=== PATIENT | female | born 1930 | race Caucasian/White ===

== ENCOUNTER 2017-03-17 20:18 | Inpatient (IN) | payer MEDICARE, MEDICAID ==
[2017-03-17] MEDS ORDERED: Sodium Chloride 0.9% 10 ML Syringe FLUSH PRN (20:47)
[2017-03-17] MEDS ORDERED: Furosemide 40 MG/4 ML VIAL IV ONE (20:49)
[2017-03-17 22:50] LABS: CHLORIDE,CL 105 mmol/L (98-107); SODIUM,NA 142 mmol/L (136-145)
[2017-03-18] MEDS ORDERED: Enoxaparin 30 MG/0.3 ML Syringe SUBCUT SCH (01:15)
[2017-03-18] MEDS: Enoxaparin 30 MG/0.3 ML Syringe SUBCUT SCH (06:08)
[2017-03-18] MEDS: Tiotropium Inhaler 18 MCG Inhalation Powder Cap Kit of 5 INH SCH ×2 (07:49→10:16)
[2017-03-18] MEDS: Calcium Carbonate/Vitamin D3 1250 MG-200 Unit Tab PO SCH (07:49)
[2017-03-18] MEDS: Cyanocobalamin (Vitamin B12) 1,000 MCG Tab PO SCH (07:50)
[2017-03-18] MEDS: Potassium Chloride 10 MEQ Tab.ER PO SCH ×2 (07:50→20:56)
[2017-03-18] MEDS: Folic Acid 1 MG Tab PO SCH (07:50)
[2017-03-18] MEDS: Losartan 25 MG Tab PO SCH (07:50)
[2017-03-18] MEDS: Multivitamins with Iron/Calcium/Folic Acid/Minerals Tab PO SCH (07:50)
[2017-03-18] MEDS: Aspirin 325 MG Tab.EC PO SCH (07:50)
[2017-03-18] MEDS: atorvaSTATin 10 MG Tab PO SCH (07:51)
[2017-03-18] MEDS: Metoprolol Succinate 50 MG Tab.ER PO SCH (07:53)
[2017-03-18] MEDS ORDERED: Bumetanide 1 MG Tab PO SCH ×2 (08:00→12:00)
[2017-03-18] MEDS: Furosemide 40 MG/4 ML VIAL IV SCH (10:41)
--- NOTE | 2017-03-18 14:40 | HP ---
REASON FOR ADMISSION: Fluid retention and dyspnea. HISTORY: An 86-year-old, white female, brought in by family last evening. She was assessed in the emergency room. She was noted to have increasing swelling in her legs since last , worse by evening. Also some shortness of breath and some significant orthopnea. She denied any chest pain, any nausea, vomiting, and no abdominal pain. On assessment in the emergency room last night, she was found to be in congestive heart failure and was given some IV Lasix with good urinary output results. It was felt the best that she be in the hospital for monitoring and treatment of her condition. PAST MEDICAL HISTORY: 1. She was hospitalized in 02/2016 with similar symptoms, was admitted to the [facility] on transfer from here. She was in acute respiratory failure at that time. 2. Congestive heart failure. 3. Pulmonary hypertension. 4. Sleep apnea. 5. Depression. 6. Atrial fibrillation. 7. COPD. MEDICATIONS: Reviewed in the electronic health record. ALLERGIES: None known. SOCIAL HISTORY: She lives alone at [facility]. She is a . Home health visits her every 2 weeks for medications set up. REVIEW OF SYSTEMS: She denies any cold symptoms. No fever or chills. No cough. No urinary symptoms. No change in bowel habits. OBJECTIVE: GENERAL: She is alert. VITAL SIGNS: Weight on admission was 181 pounds and 12 ounces. Weight this morning is 180 pounds. Blood pressure is 153/63, pulse is 64, O2 sats 96%, respirations are 20. HEENT: TMs are negative. Throat clear. NECK: No adenopathy. HEART: Regular rate and rhythm. LUNGS: Clear to auscultation. ABDOMEN: Soft, moderately obese. No masses palpable. No hepatosplenomegaly noted. Normoactive bowel sounds. EXTREMITIES: Warm and dry. There is no edema this morning. Full range of motion. NEUROLOGICAL: Motor and sensory functions are grossly intact. LABORATORY DATA: White count 8.6, hemoglobin 11.5. INR 1.1. Electrolytes are normal. Creatinine is 1.2. Troponin last night was 0.190, this morning it is 0.266, proBNP 6161. EKG showed atrial fibrillation with a slow response. No other acute changes noted. Chest x-ray showed a large left pleural effusion and a small right pleural effusion. ASSESSMENT: 1. Congestive heart failure - acute exacerbation - etiology undetermined. 2. Elevated troponin. Apparently she had a discussion in the ER last night about going to [place]. She elected to stay here. Unclear if she understands ramifications as she is quite hard of hearing. We will continue to monitor. 3. Atrial fibrillation. 4. Pulmonary hypertension. 5. Chronic obstructive coronary artery disease. PLAN: The patient will be admitted on acute care status. Placed on director of cardiac cath lab. Monitor I and O and daily weights. Repeat EKG this morning. Repeat troponin this afternoon. Give her IV Lasix for diuresis and hold her Bumex for now. Continue her other home medications. Repeat laboratory tomorrow morning and discuss with her family later today regarding implications of her elevated troponin. FM: 03/18/2017 10:12:46 MODL: 03/18/2017 14:31:34 /[id number]
[2017-03-19] MEDS: Cyanocobalamin (Vitamin B12) 1,000 MCG Tab PO SCH (07:47)
[2017-03-19] MEDS: Aspirin 325 MG Tab.EC PO SCH (07:47)
[2017-03-19] MEDS: Calcium Carbonate/Vitamin D3 1250 MG-200 Unit Tab PO SCH (07:47)
[2017-03-19] MEDS: Multivitamins with Iron/Calcium/Folic Acid/Minerals Tab PO SCH (07:47)
[2017-03-19] MEDS: Metoprolol Succinate 50 MG Tab.ER PO SCH (07:47)
[2017-03-19] MEDS: atorvaSTATin 10 MG Tab PO SCH (07:47)
[2017-03-19] MEDS: Losartan 25 MG Tab PO SCH (07:47)
[2017-03-19] MEDS: Folic Acid 1 MG Tab PO SCH (07:47)
[2017-03-19] MEDS: Potassium Chloride 10 MEQ Tab.ER PO SCH (07:47)
[2017-03-19] MEDS: Furosemide 40 MG/4 ML VIAL IV SCH (07:48)
[2017-03-19] MEDS: Enoxaparin 30 MG/0.3 ML Syringe SUBCUT SCH (07:49)
[2017-03-19] MEDS: Tiotropium Inhaler 18 MCG Inhalation Powder Cap Kit of 5 INH SCH (07:49)
[2017-03-19 10:44] VITALS: BP 125/65
--- NOTE | 2017-03-20 08:06 | DISCH ---
FINAL DIAGNOSES: 1. Congestive heart failure-acute exacerbation-etiology undetermined. 2. Elevated troponin possibly related to congestive heart failure, possibly non-ST elevated myocardial infarction. 3. Chronic atrial fibrillation. 4. Pulmonary hypertension. 5. Chronic obstructive pulmonary disease. HISTORY AND HOSPITAL COURSE: 86-year-old white female, brought in by family with increasing symptoms of swelling in her legs and shortness of breath especially orthopnea. She denied any chest pain. She was given IV Lasix in the emergency room with good diuresis. Continued IV Lasix on the hospital floor. 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 Her troponin levels were monitored and they did go up a little bit and then came back down the same day. She denies any chest pain throughout her hospital stay, was up and ambulatory. Feeling quite well. His chest x-ray did show a large left pleural effusion and a small right pleural effusion. She was symptomatically improved by the time of discharge. The patient and her son were made aware of the elevated troponin and she elected to stay here rather being transferred to [place] for further evaluation. LABORATORY DATA: White count 8.6, hemoglobin 11.5, electrolytes remained stable. Discharge potassium of 3.5, creatinine remained stable at 1.2. LFTs were normal. Initial troponin was 0.190, it went up as high as 0.266, and then today it is at 0.093. Her proBNP was elevated at 6161 and on discharge day is 3606. CONDITION ON DISCHARGE: Improved. DISCHARGE MEDICATIONS: 1. Aspirin 325 mg daily. 2. Lipitor 20 mg daily. 3. Wellbutrin 75 mg b.i.d. 4. Calcium carbonate daily. 5. Vitamin B12 1000 mcg daily. 6. Folic acid 1 mg daily. 7. Bumex 1 mg in the morning and 0.5 mg at 2 p.m. 8. Losartan 25 mg daily. 9. Metoprolol 200 mg daily. 10.Multivitamin daily. 11.Potassium 10 mEq daily. 12.Spiriva 1 inhalation daily. 13.Sublingual nitroglycerin p.r.n. 14.Symbicort 2 puffs b.i.d. 15.Incruse Ellipta 1 puff daily. FOLLOWUP: She identifies Dr. Shirley Loera as a primary provider and she should follow up with her in approximately 1 week to monitor her condition. Home Health will come on and set up the medications. They will be informed of medication changes. Also discussed condition with her son and he is aware of her new medication changes also. Duration of discharge day evaluation greater than 30 minutes. FM: 03/19/2017 11:24:31 MODL: 03/20/2017 03:14:08 /[id number]
--- NOTE | 2017-03-21 06:48 | ER ---
Date of Service: 03/17/2017 SUBJECTIVE: Doretha presents to the emergency room with her family. They noticed that she has been experiencing increased edema in her lower extremities. She also was complaining of some orthopnea and increased shortness of breath with activity. She states that she was not experiencing any chest pain or abdominal pain. The patient does have a history of severe congestive heart failure and was transferred to [facility] in [place] following an episode of flash pulmonary edema and acute respiratory failure requiring BiPAP in last fall. She since has recovered from that episode. PAST MEDICAL HISTORY: 1. Congestive heart failure. 2. Pulmonary hypertension. 3. Sleep apnea. 4. Depression. 5. Atrial fibrillation. 6. COPD. MEDICATIONS: Please see MAR. ALLERGIES: NKDA. REVIEW OF SYSTEMS: Denies any fever or chills. No cough. Does again complain of some increased respiratory distress, but no chest pain. No abdominal pain. No nausea, vomiting or diarrhea. PHYSICAL EXAMINATION: General: This is an 86-year-old female patient, who is in no acute distress. Vital Signs: Blood pressure is 145/74, heart rate is 68, temperature is 36.3, respiratory rate 16, O2 saturations 97%. Skin: Warm, pink, and dry. HEENT: Head is normocephalic, atraumatic. Mouth, oral mucosa is moist. Lungs: Diminished with some crackles in the bases. Heart: Regular rate and rhythm. Abdomen: Soft, nontender. There are no hepatosplenomegaly or masses noted. Extremities: Without edema. Neurologic: She is alert and oriented, answers all questions appropriately. Her speech is fluent. Her gait is within normal limits. DIAGNOSTIC DATA: A 12-lead EKG was obtained showing atrial fibrillation with no significant change or acute pathology. LABORATORY DATA: WBC 8.6, hemoglobin is 11.5, platelets are 229. PT is 12.1, INR is 1.0. Chemistry: Sodium is 142, potassium is 3.4, chloride is 105, bicarb is 28, BUN is 29, creatinine is 1.2, GFR is 43, glucose is 81, calcium is 8.8, corrected calcium is 9.36, total bilirubin is 0.4, AST is 20, ALT 27, alkaline phosphatase is 104, troponin was 0.190, proBNP was 6161, total protein is 6.9. EMERGENCY ROOM COURSE: IV access was established. She was given 40 mg of Lasix IV. She did report feeling much better and stated she was not experiencing any increased shortness of breath. ASSESSMENT: Congestive heart failure exacerbation. PLAN: I did speak with Dr. Maxwell Muhammad regarding admission for this patient. Please refer to his H and P regarding plan of care. She will be admitted to Med/Surg again acutely. All questions were answered. MWK: 03/21/2017 06:13:38 MODL: 03/21/2017 06:42:06 /[id number]
== END 2017-03-19 12:50 | disposition home health service (06) | DRG 282 ==
LOC: VM.ED 20:18 → VM.MS 23:15
PROVIDERS: ADMIT Family Medicine; ATTEND Family Medicine
DX: I50.9 Heart failure, unspecified (principal); R55 Syncope and collapse; R00.1 Bradycardia, unspecified; I21.4 Non-ST elevation (NSTEMI) myocardial infarction; Z66 Do not resuscitate; I27.2 Other secondary pulmonary hypertension; I48.91 Unspecified atrial fibrillation; R06.02 Shortness of breath; J44.9 Chronic obstructive pulmonary disease, unspecified; F32.9 Major depressive disorder, single episode, unspecified; Z79.82 Long term (current) use of aspirin; Z79.899 Other long term (current) drug therapy; I48.2 Chronic atrial fibrillation; G47.30 Sleep apnea, unspecified; R79.1 Abnormal coagulation profile
CPT/HCPCS: 36415; 71020; 80053; 82550; 82553; 83880; 84484; 85025; 85610; 93005; 96374; 99284; 99285; J1940; 80048; A9270-GY; J1650; J7050

== ENCOUNTER 2017-12-15 16:09 | Observation (INO) | payer MEDICARE, MEDICAID ==
--- NOTE | 2017-12-15 16:47 | EDM.PDOC ---
ED HPI GENERAL MEDICAL PROBLEM - General Chief Complaint: General Stated Complaint: fall, shoulder, knee pain Time Seen by Provider: 12/15/17 16:25 Source of Information: Reports: Patient, EMS History Limitations: Reports: No Limitations - History of Present Illness INITIAL COMMENTS - FREE TEXT/NARRATIVE: Patient is brought into the emergency department with complaints of right shoulder and left knee pain. Patient states she fell a couple times at home over the course of the last 24 hours. She does not remember hitting her head or losing consciousness. She denies feeling dizzy, lightheaded, or blurred vision. She misplaced her footing and fell. Patient is a poor historian at times is difficult to get an answer out of. EMS brought the patient in and gave her 1 mg Dilaudid prior to arrival. Patient has minimal amount of pain now that Dilaudid is on board. She still has some tenderness on palpation of the right shoulder. Onset: Sudden Quality: Reports: Throbbing Improves with: Reports: Immobilization Worsens with: Reports: Movement Context: Reports: Activity Treatments RETORT KILN BURNER: Reports: IV/IO, Other (see below) Other Treatments RETORT KILN BURNER: Dilaudid 1 mg - Related Data Allergies Allergy/AdvReac Type Severity Reaction Status Date / Time No Known Allergies Allergy Verified 12/15/17 16:28 Home Meds: Home Meds Aspirin [Halfprin] 325 mg PO DAILY 01/06/14 [History] Cyanocobalamin (Vitamin B-12) [Vitamin B-12] 1,000 mcg PO DAILY 01/06/14 [ History] Folic Acid 1 mg PO DAILY 01/06/14 [History] Losartan [Cozaar] 25 mg PO DAILY 01/06/14 [History] Multivitamin [Multi-Vitamin Daily] 1 each PO DAILY 01/06/14 [History] atorvaSTATin [Lipitor] 20 mg PO DAILY 01/06/14 [History] Tiotropium [Spiriva Handihaler] 18 mcg INH DAILY 08/11/14 [History] Potassium Chloride 10 meq PO BID #60 08/13/14 [Rx] Metoprolol Succinate [Toprol XL] 200 mg PO DAILY 06/13/15 [History] Bumetanide [Bumex] 1 mg PO DAILY 03/17/17 [History] buPROPion [Wellbutrin] 75 mg PO BID 03/17/17 [History] Budesonide/Formoterol [Symbicort 160-4.5 MCG] 2 puff INH BID 03/18/17 [History] Calcium Carbonate/Vitamin D3 [Cvs Calcium 500 + Vit D Tablet] 2 tab PO DAILY 09/29 [History] Cholecalciferol (Vitamin D3) [Vitamin D3] 1,000 unit PO DAILY 03/18/17 [History] Nitroglycerin [Nitrostat] 1 tab SUBAR ASDIRECTED PRN 03/18/17 [History] Umeclidinium [place] [Incruse Ellipta*] 1 puff INH DAILY 03/18/17 [History] Bumetanide [Bumex] 0.5 mg PO DAILY #30 tablet 03/19/17 [Rx] Past Medical History HEENT History: Reports: Hard of Hearing Cardiovascular History: Reports: Afib, Blood Clots/VTE/DVT, Heart Failure, High Cholesterol, Hypertension, Pulmonary Hypertension Other Cardiovascular History: mild aortic and mitral regurgitation Respiratory History: Reports: Sleep Apnea Gastrointestinal History: Reports: GERD Musculoskeletal History: Reports: Osteoarthritis Psychiatric History: Reports: Anxiety, Depression, OCD - Past Surgical History HEENT Surgical History: Reports: None Social & Family History - Family History Family Medical History: Noncontributory - Caffeine Use Caffeine Use: Reports: Coffee ED ROS GENERAL - Review of Systems Review Of Systems: See Below Constitutional: Reports: No Symptoms HEENT: Reports: No Symptoms Respiratory: Reports: No Symptoms Cardiovascular: Reports: No Symptoms Endocrine: Reports: No Symptoms GI/Abdominal: Reports: No Symptoms : Reports: No Symptoms Musculoskeletal: Reports: No Symptoms Skin: Reports: No Symptoms Neurological: Reports: No Symptoms Psychiatric: Reports: No Symptoms Hematologic/Lymphatic: Reports: No Symptoms ED EXAM, GENERAL - Physical Exam Exam: See Below Exam Limited By: No Limitations General Appearance: Alert, WD/WN, No Apparent Distress Nose: Normal Inspection Head: Atraumatic, Normocephalic Neck: Normal Inspection, Supple, Non-Tender, Full Range of Motion Respiratory/Chest: No Respiratory Distress, Lungs Clear, No Accessory Muscle Use Cardiovascular: Normal Peripheral Pulses, Regular Rate, Rhythm GI/Abdominal: Normal Bowel Sounds, Soft, Non-Tender, No Distention Back Exam: Normal Inspection, Full Range of Motion Extremities: Normal Inspection, Leg Pain, Limited Range of Motion (left ankle and foot pain with moderate swelling. Decrease ROM, tenderness, swelling, and ecchymosis noted) Neurological: Alert, Oriented Psychiatric: Normal Affect, Normal Mood Skin Exam: Warm, Dry, Intact, Normal Color, No Rash Course - Vital Signs Last Recorded V/S: Last Vital Signs Temp 37.1 C 12/15/17 16:23 Pulse 70 12/15/17 18:38 Resp 16 12/15/17 18:38 BP 157/59 H 12/15/17 18:38 Pulse Ox 96 12/15/17 18:38 - Orders/Labs/Meds Orders: Active Orders 24 hr Category Date Time Status Admission Status [Patient Status] [ADT] Routine ADT 12/15/17 20:02 Ordered EKG Documentation Completion [RC] STAT Care 12/15/17 16:42 Active Foot 2V Lt [CR] Stat Exams 12/15/17 18:08 Taken Knee 1V or 2V Lt [CR] Stat Exams 12/15/17 16:42 Taken Shoulder Comp Rt [CR] Stat Exams 12/15/17 16:43 Taken Labs: Laboratory Tests 12/15/17 12/15/17 Range/Units 17:17 17:17 WBC 9.0 (4.0-10.0) x10^3/uL RBC 4.47 (4.00-5.50) x10^6/uL Hgb 11.7 L (12.0-16.0) g/dL Hct 36.9 (33.0-47.0) % MCV 82.6 (78.0-93.0) fL MCH 26.2 (26.0-32.0) pg MCHC 31.7 L (32.0-36.0) g/dL RDW Coeff of Jayy 15.2 H (10.0-15.0) % Plt Count 242 (130-400) x10^3/uL Neut % (Auto) 79.6 (50.0-80.0) % Lymph % (Auto) 7.5 L (25.0-50.0) % [place] % (Auto) 12.0 H (2.0-11.0) % Eos % (Auto) 0.6 (0.0-4.0) % Baso % (Auto) 0.3 (0.2-1.2) % Sodium 140 (136-145) mmol/L Potassium 4.1 (3.5-5.1) mmol/L Chloride 104 (98-107) mmol/L Carbon Dioxide 26 (21-32) mmol/L Anion Gap 14.1 (10-20) mmol/L BUN 12 (7-18) mg/dL Creatinine 1.0 (0.55-1.02) mg/dL Est Cr Clr Drug Dosing 28.47 mL/min Estimated GFR (MDRD) 52 Glucose 89 (74-106) mg/dL Calcium 9.1 (8.5-10.1) mg/dL Corrected Calcium 9.50 (8.5-10.1) mg/dL Total Bilirubin 1.1 H (0.2-1.0) mg/dL AST 23 (15-37) U/L ALT 31 (14-59) U/L Alkaline Phosphatase 150 H (46-116) U/L Total Protein 7.5 (6.4-8.2) g/dL Albumin 3.5 (3.4-5.0) g/dL Globulin 4.0 Albumin/Globulin Ratio 0.88 Departure - Departure Time of Disposition: 20:05 Disposition: Refer to Observation Condition: Good Clinical Impression: Left foot pain, Weakness, Gait disturbance Ankle sprain Qualifiers: Encounter type: initial encounter Involved ligament of ankle: unspecified ligament Laterality: left Qualified Code(s): S93.402A - Sprain of unspecified ligament of left ankle, initial encounter - Discharge Information Referrals: Shirley Loera DO [Primary Care Provider] - Forms: ED Department Discharge - Problem List Review Problem List Initiated/Reviewed/Updated: Yes - My Orders Last 24 Hours: My Active Orders 12/15/17 16:42 EKG Documentation Completion [RC] STAT Knee 1V or 2V Lt [CR] Stat 12/15/17 16:43 Shoulder Comp Rt [CR] Stat 12/15/17 18:08 Foot 2V Lt [CR] Stat 12/15/17 20:02 Admission Status [Patient Status] [ADT] Routine - Assessment/Plan Admission H&P: Please use this note as an admission H&P Last 24 Hours: My Active Orders 12/15/17 16:42 EKG Documentation Completion [RC] STAT Knee 1V or 2V Lt [CR] Stat 12/15/17 16:43 Shoulder Comp Rt [CR] Stat 12/15/17 18:08 Foot 2V Lt [CR] Stat 12/15/17 20:02 Admission Status [Patient Status] [ADT] Routine Assessment:: 1. right shoulder pain 2. Left knee pain Admit diagnosis: 1. Weakness 2. Left ankle sprain 3. Gait Disturbances 4. Left ankle pain Plan: 1. Labs completed in ER and results reviewed with the pt.- negative findings 2. xray completed in ER and results reviewed with the pt.- negative findings 3. 1810-Pt's family is present at the bedside now and states the main concern has been the pt's ankle today. He has been unwilling to walk on a ankle. And will cry major movement is completed. 4. ankle x-ray is negative. Will place cam boot on for comfort and ankle/foot stability. 5. after placing the cam boot on the patient's left leg. Staff did try to have patient ambulate with the use of a walker which she uses at home. Patient was very unsteady and unable to ambulate on her own without having direct supervision and physical support holding around the waist. She is in a independent apartment building and is unable to care for self at this time. She does not have any family lives with her. Patient is not currently safe to go home. She is too weak and unsteady to walk around even with the cam boot and a walker related to her ankle injury. We'll admit the patient for the next 24-48 hours to hopefully increase strengthening to that left foot. Will also control her pain if it does arise again. Currently pain is controlled with the 1mg Dilaudid she was given enroute via ambulance. We'll order a PT consult and work with strengthening and ambulating in the [place]. The patient is not able to ambulate on her own or take care of herself after 48 hours we did discuss transferring her to swing bed and possible further placement in an assisted living or care home living.
[2017-12-15] MEDS ORDERED: Ondansetron 4 MG Tab.DIS PO PRN (20:21)
[2017-12-15] MEDS ORDERED: Acetaminophen/HYDROcodone 325-5 MG Tab PO PRN (20:21)
[2017-12-15] MEDS ORDERED: Albuterol 0.083% 2.5 MG/3 ML Neb Soln INH PRN (20:29)
[2017-12-16] MEDS: Ipratropium 0.02% 0.5 MG/2.5 ML Neb Soln INH SCH ×3 (06:53→18:00)
[2017-12-16] MEDS: Aspirin 325 MG Tab.EC PO SCH (07:31)
[2017-12-16] MEDS: Calcium Carbonate/Vitamin D3 1250 MG-200 Unit Tab PO SCH (07:31)
[2017-12-16] MEDS: Folic Acid 1 MG Tab PO SCH (07:31)
[2017-12-16] MEDS: Ibuprofen 200 MG Tab PO PRN ×2 (07:31→13:08)
[2017-12-16] MEDS: Multivitamin, Stress Formula with Zinc Tab PO SCH (07:31)
[2017-12-16] MEDS: Cyanocobalamin (Vitamin B12) 1,000 MCG Tab PO SCH (07:31)
[2017-12-16] MEDS: Losartan 25 MG Tab PO SCH (07:33)
[2017-12-16] MEDS: Potassium Chloride 10 MEQ Tab.ER PO SCH ×2 (07:33→17:41)
[2017-12-16] MEDS: Cholecalciferol (Vitamin D3) 1,000 Unit Tab PO SCH (07:33)
[2017-12-16] MEDS: Metoprolol Succinate 50 MG Tab.ER PO SCH (07:34)
[2017-12-16] MEDS: Bumetanide 1 MG Tab PO SCH ×2 (07:34→13:06)
[2017-12-16] MEDS: SYMBICORT INH SCH ×2 (07:36→19:21)
[2017-12-16] MEDS ORDERED: atorvaSTATin 10 MG Tab PO SCH ×2 (08:00→20:00)
[2017-12-16] MEDS ORDERED: Bumetanide 1 MG Tab PO SCH ×2 (14:00→20:00)
--- NOTE | 2017-12-16 14:44 | PCM.PN ---
- General Info Date of Service: 12/16/17 Subjective Update: Patient was admitted in observation last evening after sustaining a left sprained ankle. Patient was not able to ambulate on herself and cannot perform activities of daily living on her own. She is an independent housing unit and does not have any caregivers to assist her. Patient was unable to ambulate and get up on her own well. Patient was also very weak and described severe amount of pain when placing any weight on the left foot. Patient was admitted overnight. Nursing notes reviewed stated patient tolerated nonnarcotic medication management for discomfort of the left ankle. However when trying to get the patient up and out of bed she has not been ambulating on her own. Patient has independently active range of motion however she is not willing to step down in place any weight on that foot. Functional Status: Reports: Pain Controlled, Tolerating Diet, Urinating Pain Score: 4 - Review of Systems General: Reports: No Symptoms HEENT: Reports: No Symptoms Pulmonary: Reports: Pleuritic Chest Pain Cardiovascular: Reports: No Symptoms Gastrointestinal: Reports: No Symptoms Genitourinary: Reports: No Symptoms Musculoskeletal: Reports: No Symptoms Skin: Reports: No Symptoms Neurological: Reports: No Symptoms Psychiatric: Reports: No Symptoms - Patient Data Vitals - Most Recent: Last Vital Signs Temp 36.7 C 12/16/17 13:56 Pulse 62 12/16/17 13:56 Resp 16 12/16/17 13:56 BP 133/52 L 12/16/17 13:56 Pulse Ox 96 12/16/17 13:56 Weight - Most Recent: 83.461 kg I&O - Last 24 Hours: Intake & Output 12/15/17 12/16/17 12/16/17 22:59 06:59 14:59 Intake Total 200 450 Output Total 400 Balance 200 50 Lab Results Last 24 Hours: Laboratory Results - last 24 hr 12/15/17 12/15/17 Range/Units 17:17 17:17 WBC 9.0 (4.0-10.0) x10^3/uL RBC 4.47 (4.00-5.50) x10^6/uL Hgb 11.7 L (12.0-16.0) g/dL Hct 36.9 (33.0-47.0) % MCV 82.6 (78.0-93.0) fL MCH 26.2 (26.0-32.0) pg MCHC 31.7 L (32.0-36.0) g/dL RDW Coeff of Jayy 15.2 H (10.0-15.0) % Plt Count 242 (130-400) x10^3/uL Neut % (Auto) 79.6 (50.0-80.0) % Lymph % (Auto) 7.5 L (25.0-50.0) % [place] % (Auto) 12.0 H (2.0-11.0) % Eos % (Auto) 0.6 (0.0-4.0) % Baso % (Auto) 0.3 (0.2-1.2) % Sodium 140 (136-145) mmol/L Potassium 4.1 (3.5-5.1) mmol/L Chloride 104 (98-107) mmol/L Carbon Dioxide 26 (21-32) mmol/L Anion Gap 14.1 (10-20) mmol/L BUN 12 (7-18) mg/dL Creatinine 1.0 (0.55-1.02) mg/dL Est Cr Clr Drug Dosing 28.47 mL/min Estimated GFR (MDRD) 52 Glucose 89 (74-106) mg/dL Calcium 9.1 (8.5-10.1) mg/dL Corrected Calcium 9.50 (8.5-10.1) mg/dL Total Bilirubin 1.1 H (0.2-1.0) mg/dL AST 23 (15-37) U/L ALT 31 (14-59) U/L Alkaline Phosphatase 150 H (46-116) U/L Total Protein 7.5 (6.4-8.2) g/dL Albumin 3.5 (3.4-5.0) g/dL Globulin 4.0 Albumin/Globulin Ratio 0.88 Med Orders - Current: Current Medications Hydrocodone Bitart/Acetaminophen ([place] 325-5 Mg) 1 tab PO Q4H PRN PRN Reason: Pain (moderate 4-6) Albuterol (Proventil Neb Soln) 2.5 mg INH Q4H PRN PRN Reason: Shortness of Breath Aspirin (Ecotrin) 325 mg PO DAILY [facility] Last Admin: 12/16/17 07:31 Dose: 325 mg Atorvastatin Calcium (Lipitor) 20 mg PO BEDTIME [facility] Bumetanide (Bumex) 1 mg PO DAILY [facility] Last Admin: 12/16/17 07:34 Dose: 1 mg Bumetanide (Bumex) 0.5 mg PO DAILY@1400 [facility] Last Admin: 12/16/17 13:06 Dose: 0.5 mg Bupropion HCl (Wellbutrin) 75 mg PO BID [facility] Last Admin: 12/16/17 07:34 Dose: 75 mg Calcium Carbonate (Calcium Carbonate/Vitamin D 1250 Mg-200 Unit) 2 tab PO DAILY [facility] Last Admin: 12/16/17 07:31 Dose: 2 tab Cholecalciferol (Vitamin D3) 1,000 units PO DAILY [facility] Last Admin: 12/16/17 07:33 Dose: 1,000 units Cyanocobalamin (Vitamin B12) 1,000 mcg PO DAILY [facility] Last Admin: 12/16/17 07:31 Dose: 1,000 mcg Folic Acid (Folic Acid) 1 mg PO DAILY [facility] Last Admin: 12/16/17 07:31 Dose: 1 mg Ibuprofen (Motrin) 400 mg PO Q6H PRN PRN Reason: Pain (mild 1-3) Last Admin: 12/16/17 13:08 Dose: 400 mg Ipratropium [place] (Atrovent) 0.5 mg INH Q6HRRT [facility] Last Admin: 12/16/17 13:06 Dose: 0.5 mg Losartan Potassium (Cozaar) 25 mg PO DAILY [facility] Last Admin: 12/16/17 07:33 Dose: 25 mg Metoprolol Succinate (Toprol Xl) 200 mg PO DAILY [facility] Last Admin: 12/16/17 07:34 Dose: 200 mg Symbicort 160-4.5 Mcg Inhaler Own Med 0 puff INH BID [facility] Last Admin: 12/16/17 07:36 Dose: 2 puff Incruse Ellipta 62.5 Mcg Inhaler Own Med 0 puff INH DAILY [facility] Last Admin: 12/16/17 07:35 Dose: 1 puff Ondansetron HCl (Zofran Odt) 4 mg PO Q6H PRN PRN Reason: nausea, able to take PO Potassium Chloride (Klor-Con 10) 10 meq PO BIDMEALS [facility] Last Admin: 12/16/17 07:33 Dose: 10 meq Vitamin B Complex/Vit C/Vit E/Zinc (Stress Formula With Zinc) 1 tab PO DAILY [facility] Last Admin: 12/16/17 07:31 Dose: 1 tab Discontinued Medications Atorvastatin Calcium (Lipitor) 20 mg PO DAILY [facility] Bumetanide (Bumex) 0.5 mg PO BEDTIME [facility] Bumetanide (Bumex) 0.5 mg PO DAILY@1400 [facility] - Exam General: Alert, Oriented, Other (very hard of hearing ) HEENT: Pupils Equal, Pupils Reactive, EOMI Neck: Supple Lungs: Normal Respiratory Effort, Decreased Breath Sounds Cardiovascular: Regular Rate, Regular Rhythm GI/Abdominal Exam: Normal Bowel Sounds, Soft, Non-Tender, No Distention, No Abnormal Bruit Extremities: Normal Inspection, Limited Range of Motion (left ankle swelling with camboot in place. ) Skin: Warm, Dry, Intact Neurological: No New Focal Deficit Psy/Mental Status: Alert, Normal Affect, Normal Mood - Problem List Review Problem List Initiated/Reviewed/Updated: Yes - My Orders Last 24 Hours: My Active Orders 12/15/17 16:42 Knee 1V or 2V Lt [CR] Stat 12/15/17 16:43 Shoulder Comp Rt [CR] Stat 12/15/17 18:08 Foot 2V Lt [CR] Stat 12/15/17 19:50 DME for Inpatients [OM.PC] Stat 12/15/17 20:02 Admission Status [Patient Status] [ADT] Routine 12/15/17 20:21 Ambulate [RC] 08,20 Oxygen Therapy [RC] .PRN Up ad Nae [RC] 08,20 Vital Signs [RC] 06,10,14,18,22,02 Consult to [place] [CONS] Routine PT Evaluation and Treatment [CONS] Routine Acetaminophen/HYDROcodone [[place] 325-5 MG] 1 tab PO Q4H PRN Ibuprofen [Motrin] 400 mg PO Q6H PRN Ondansetron [Zofran ODT] 4 mg PO Q6H PRN Resuscitation Status Routine 12/15/17 20:29 Albuterol [Proventil Neb Soln] 2.5 mg INH Q4H PRN 12/15/17 20:34 CPAP [RESPCARE] Routine 12/16/17 07:00 Ipratropium [Atrovent] 0.5 mg INH Q6HRRT 12/16/17 08:00 Aspirin [Ecotrin] 325 mg PO DAILY Budesonide/Formoterol [Symbicort 160-4.5 MCG] 0 puff INH BID Bumetanide [Bumex] 1 mg PO DAILY Calcium Carbonate/Vitamin D3 [Calcium Carbonate/Vitamin D 1250 MG-200 Unit] 2 tab PO DAILY Cholecalciferol (Vitamin D3) [Vitamin D3] 1,000 units PO DAILY Cyanocobalamin (Vitamin B12) [Vitamin B12] 1,000 mcg PO DAILY Folic Acid 1 mg PO DAILY Losartan [Cozaar] 25 mg PO DAILY Metoprolol Succinate [Toprol XL] 200 mg PO DAILY Multivitamins with Zinc [Stress Formula with Zinc] 1 tab PO DAILY Potassium Chloride [Klor-Con 10] 10 meq PO BIDMEALS Umeclidinium [place] [Incruse Ellipta*] 0 puff INH DAILY buPROPion [Wellbutrin] 75 mg PO BID 12/16/17 14:00 Bumetanide [Bumex] 0.5 mg PO DAILY@1400 12/16/17 20:00 atorvaSTATin [Lipitor] 20 mg PO BEDTIME 12/16/17 Breakfast Regular Diet [DIET] - Assessment Assessment:: 1. Left ankle pain with camboot placed 2. Weakness. 3. Inability to ambulate due to walk - Plan Plan:: 1. Pt is encouraged to ambulated with the use of her walker 2. Elevate the extremity as much as possible to reduce any swelling or discomfort. 3. If pt is unable to ambulate well we will need to consult for possible care home placement or swing bed. No fractures were found and pt is able to move the extremity however she is unwilling to bear weight because of the pain when placing weight on that extremity. 4. Pt and nursing staff are encouraged to use OTC pain management when possible and reserve narcotic for severe out breaks of pain only. 5. PT consult needs to be ran through home health according to protocol. Nursing will contact them in the am to get approval or recommendations. 6. Pt is very difficult to communicate with due to hearing and language barriers at times. It is advised when discussing next plan of care family be present to help the pt make the most appropriate disposition with the patient.
[2017-12-17] MEDS: Ipratropium 0.02% 0.5 MG/2.5 ML Neb Soln INH SCH ×2 (00:31→06:25)
--- NOTE | 2017-12-17 08:23 | PCM.PN ---
- General Info Date of Service: 12/17/17 Admission Dx/Problem (Free Text): Hospital day 2 following admission for pain control due to sprained L ankle. Pt. lives independently in an apartment and was unable to ambulate, necessitating admission the the hospital for strengthening and pain control. Pt. states that the discomfort is improving somewhat. She has had radiographs of the ankle which were negative for acute fracture. She has not seen PT, as the fall happened on Sunday. She will be evaluated today by PT and social service worker is also being consulted-she possibly will need self pain swingbed or other services in the event she is still unable to ambulate. Functional Status: Reports: Pain Controlled - Review of Systems General: Reports: No Symptoms HEENT: Reports: No Symptoms Pulmonary: Reports: No Symptoms Cardiovascular: Reports: No Symptoms Gastrointestinal: Reports: No Symptoms Genitourinary: Reports: No Symptoms Musculoskeletal: Reports: Leg Pain (L ankle) Skin: Reports: No Symptoms Neurological: Reports: No Symptoms Psychiatric: Reports: No Symptoms - Patient Data Vitals - Most Recent: Last Vital Signs Temp 36.4 C 12/17/17 06:00 Pulse 61 12/17/17 06:00 Resp 18 12/17/17 06:00 BP 151/76 H 12/17/17 06:00 Pulse Ox 92 L 12/17/17 06:00 Weight - Most Recent: 83.461 kg I&O - Last 24 Hours: Intake & Output 12/16/17 12/17/17 12/17/17 22:59 06:59 14:59 Intake Total 120 350 Output Total 350 Balance 120 0 Med Orders - Current: Current Medications Hydrocodone Bitart/Acetaminophen ([place] 325-5 Mg) 1 tab PO Q4H PRN PRN Reason: Pain (moderate 4-6) Albuterol (Proventil Neb Soln) 2.5 mg INH Q4H PRN PRN Reason: Shortness of Breath Aspirin (Ecotrin) 325 mg PO DAILY [facility] Last Admin: 12/16/17 07:31 Dose: 325 mg Atorvastatin Calcium (Lipitor) 20 mg PO BEDTIME [facility] Last Admin: 12/16/17 19:19 Dose: 20 mg Bumetanide (Bumex) 1 mg PO DAILY [facility] Last Admin: 12/16/17 07:34 Dose: 1 mg Bumetanide (Bumex) 0.5 mg PO DAILY@1400 [facility] Last Admin: 12/16/17 13:06 Dose: 0.5 mg Bupropion HCl (Wellbutrin) 75 mg PO BID [facility] Last Admin: 12/16/17 19:20 Dose: 75 mg Calcium Carbonate (Calcium Carbonate/Vitamin D 1250 Mg-200 Unit) 2 tab PO DAILY [facility] Last Admin: 12/16/17 07:31 Dose: 2 tab Cholecalciferol (Vitamin D3) 1,000 units PO DAILY [facility] Last Admin: 12/16/17 07:33 Dose: 1,000 units Cyanocobalamin (Vitamin B12) 1,000 mcg PO DAILY [facility] Last Admin: 12/16/17 07:31 Dose: 1,000 mcg Folic Acid (Folic Acid) 1 mg PO DAILY [facility] Last Admin: 12/16/17 07:31 Dose: 1 mg Ibuprofen (Motrin) 400 mg PO Q6H PRN PRN Reason: Pain (mild 1-3) Last Admin: 12/16/17 13:08 Dose: 400 mg Ipratropium [place] (Atrovent) 0.5 mg INH Q6HRRT [facility] Last Admin: 12/17/17 06:25 Dose: 0.5 mg Losartan Potassium (Cozaar) 25 mg PO DAILY [facility] Last Admin: 12/16/17 07:33 Dose: 25 mg Metoprolol Succinate (Toprol Xl) 200 mg PO DAILY [facility] Last Admin: 12/16/17 07:34 Dose: 200 mg Symbicort 160-4.5 Mcg Inhaler Own Med 0 puff INH BID [facility] Last Admin: 12/16/17 19:21 Dose: 2 puff Incruse Ellipta 62.5 Mcg Inhaler Own Med 0 puff INH DAILY [facility] Last Admin: 12/16/17 07:35 Dose: 1 puff Ondansetron HCl (Zofran Odt) 4 mg PO Q6H PRN PRN Reason: nausea, able to take PO Potassium Chloride (Klor-Con 10) 10 meq PO BIDMEALS [facility] Last Admin: 12/16/17 17:41 Dose: 10 meq Vitamin B Complex/Vit C/Vit E/Zinc (Stress Formula With Zinc) 1 tab PO DAILY [facility] Last Admin: 12/16/17 07:31 Dose: 1 tab Discontinued Medications Atorvastatin Calcium (Lipitor) 20 mg PO DAILY [facility] Bumetanide (Bumex) 0.5 mg PO BEDTIME [facility] Bumetanide (Bumex) 0.5 mg PO DAILY@1400 [facility] - Exam General: Alert, Oriented HEENT: Pupils Equal, Pupils Reactive, EOMI, Mucous Membr. Moist/[place] Neck: Supple Lungs: Clear to Auscultation, Normal Respiratory Effort Cardiovascular: Regular Rate, Regular Rhythm GI/Abdominal Exam: Normal Bowel Sounds, Soft, Non-Tender, No Organomegaly, No Distention, No Abnormal Bruit, No Mass, Pelvis Stable (Female) Exam: Deferred Back Exam: Normal Inspection, Full Range of Motion Extremities: Normal Inspection, Normal Range of Motion, No Pedal Edema, Normal Capillary Refill, Joint Swelling (L knee and ankle), Limited Range of Motion Peripheral Pulses: 3+: Radial (L), Radial (R), Dorsalis Pedis (L), Dorsalis Pedis (R) Skin: Warm, Dry, Intact Wound/Incisions: Healing Well Neurological: No New Focal Deficit Psy/Mental Status: Alert, Normal Affect, Normal Mood - Problem List Review Problem List Initiated/Reviewed/Updated: Yes - Assessment Assessment:: 1. Left ankle pain with camboot placed 2. Weakness. 3. Inability to ambulate due to walk - Plan Plan:: 1. Pt is encouraged to ambulated with the use of her walker 2. Elevate the extremity as much as possible to reduce any swelling or discomfort. 3. If pt is unable to ambulate well we will need to consult for possible senior care placement or swing bed. No fractures were found and pt is able to move the extremity however she is unwilling to bear weight because of the pain when placing weight on that extremity. 4. Pt and nursing staff are encouraged to use OTC pain management when possible and reserve narcotic for severe out breaks of pain only. 5. PT consult needs to be ran through home health according to protocol. Nursing will contact them in the am to get approval or recommendations. 6. Pt is very difficult to communicate with due to hearing and language barriers at times. It is advised when discussing next plan of care family be present to help the pt make the most appropriate disposition with the patient.
[2017-12-17] MEDS: Cholecalciferol (Vitamin D3) 1,000 Unit Tab PO SCH (08:38)
[2017-12-17] MEDS: Folic Acid 1 MG Tab PO SCH (08:38)
[2017-12-17] MEDS: Multivitamin, Stress Formula with Zinc Tab PO SCH (08:38)
[2017-12-17] MEDS: Cyanocobalamin (Vitamin B12) 1,000 MCG Tab PO SCH (08:38)
[2017-12-17] MEDS: Potassium Chloride 10 MEQ Tab.ER PO SCH (08:38)
[2017-12-17] MEDS: Losartan 25 MG Tab PO SCH (08:39)
[2017-12-17] MEDS: Bumetanide 1 MG Tab PO SCH ×2 (08:39→13:26)
[2017-12-17] MEDS: Metoprolol Succinate 50 MG Tab.ER PO SCH (08:39)
[2017-12-17] MEDS: Aspirin 325 MG Tab.EC PO SCH (08:39)
[2017-12-17] MEDS: Calcium Carbonate/Vitamin D3 1250 MG-200 Unit Tab PO SCH (08:39)
[2017-12-17] MEDS: SYMBICORT INH SCH (08:40)
[2017-12-17 14:23] VITALS: BP 112/48
[2017-12-17] MEDS: Ibuprofen 200 MG Tab PO PRN (15:07)
[2017-12-17] MEDS ORDERED: Nitroglycerin 0.4 MG Tab.SL SL PRN (16:05)
[2017-12-17] MEDS ORDERED: Non-Formulary Medication 1 Each (Ipratropium Bromide [Ipratropium Bromide] 2 SPRAYS) NS SCH (20:00)
[2017-12-17] MEDS ORDERED: buPROPion 150 MG Tab.ER PO SCH (20:00)
[2017-12-18] MEDS ORDERED: Non-Formulary Medication 1 Each (Metoprolol Succinate [Metoprolol Succinate] 200 MG) PO SCH (08:00)
[2017-12-18] MEDS ORDERED: Aspirin 325 MG Tab.EC PO SCH (08:00)
[2017-12-18] MEDS ORDERED: Bumetanide 1 MG Tab PO SCH (14:00)
== END 2017-12-17 16:40 | disposition swing bed (61) ==
LOC: VM.ED 16:09 → VM.MS 20:02
PROVIDERS: ADMIT Nurse Practitioner; ATTEND Nurse Practitioner
DX: S93.402A Sprain of unspecified ligament of left ankle, initial encounter (principal); M25.511 Pain in right shoulder; R53.1 Weakness; R26.9 Unspecified abnormalities of gait and mobility; W19.XXXA Unspecified fall, initial encounter; I11.0 Hypertensive heart disease with heart failure; I50.9 Heart failure, unspecified; E78.00 Pure hypercholesterolemia, unspecified; I27.20 Pulmonary hypertension, unspecified; G47.30 Sleep apnea, unspecified; K21.9 Gastro-esophageal reflux disease without esophagitis; F41.9 Anxiety disorder, unspecified; F32.9 Major depressive disorder, single episode, unspecified; Z79.82 Long term (current) use of aspirin; Z79.899 Other long term (current) drug therapy
CPT/HCPCS: 36415; 73030-RT; 73560-LT; 73620-LT; 80053; 85025; 93005; 94640; 97161-GP; 97530-GP; 99217; 99219; 99225; 99285; A9270-GY; G0378

== ENCOUNTER 2017-12-17 16:28 | Inpatient (IN) | payer MEDICARE, MEDICAID ==
[2017-12-17] MEDS ORDERED: Nitroglycerin 0.4 MG Tab.SL (OWN SUPPLY) SL PRN (17:19)
[2017-12-17] MEDS ORDERED: Albuterol 0.083% 2.5 MG/3 ML Neb Soln INH PRN (18:29)
[2017-12-17] MEDS: Potassium Chloride 10 MEQ Tab.ER PO SCH (18:40)
[2017-12-17] MEDS ORDERED: atorvaSTATin 10 MG Tab PO SCH (20:00)
[2017-12-17] MEDS ORDERED: buPROPion 150 MG Tab.ER PO SCH (20:00)
[2017-12-18] MEDS: Acetaminophen/HYDROcodone 325-5 MG Tab PO PRN (03:49)
[2017-12-18] MEDS: IPRATROPIUM 0.03% NS SCH ×4 (07:29→21:09)
[2017-12-18] MEDS ORDERED: Folic Acid 1 MG Tab PO SCH (08:00)
[2017-12-18] MEDS ORDERED: Metoprolol Succinate 50 MG Tab.ER PO SCH (08:00)
[2017-12-18] MEDS ORDERED: Bumetanide 1 MG Tab PO SCH ×2 (08:00→14:00)
[2017-12-18] MEDS ORDERED: Losartan 25 MG Tab PO SCH (08:00)
--- NOTE | 2017-12-18 08:07 | PCM.HP ---
H&P History of Present Illness - General Date of Service: 12/17/17 Admit Problem/Dx: Admission Diagnosis/Problem Admission Diagnosis/Problem Weakness - History of Present Illness Initial Comments - Free Text/Narative: History and Physical update (see Observation H&P from 12/14/17): She was admitted to observation after falling in her home at [facility] on . She was unable even to get into the car with her family helping, so she was brought by ambulance. It was hoped at the time of admission to observation that she would be able to get back to walking with partial weight bearing with her walker, since she normally uses a walker at home, but she did not improve over the next 2 days. She is quite obese and barely able to walk with a walker anyway. She agrees to transition to Swing Bed until she gets back on her feet again and is able to walk with a walker. She had an evaluation by PT today. Medical History, Surgical History, Family History, Social History: See Observation H&P Systems Review: In the hospital she has not progressed with ambulation, had a PT evaluation and they find her not able to get up and walk using the walker. Still has pain and tenderness in the L foot. Physical Exam: General: She is alert and answers questions appropriately; quite overweight ENT: Hearing seems OK, mouth and throat not examined Cardiac: Heart is regular, no murmur heard Chest: Lung sounds clear Abdomen: Soft, nontender, no organomegaly or masses Extremities: 1+ ankle edema, edema and mild ecchymosis and tenderness not of her L ankle but of her foot, and the ecchymosis is at the base of her toes Neurologic: Facial muscles symmetric, moves extremities well Psych: Cheerful and alert Impression: Sprain of L foot, previously had walked with a walker and now is unable to ambulate Needs swing bed Marked obesity Plan: Admit to Swing Bed Continue same regimen as on Observation - Related Data Allergies/Adverse Reactions: Allergies Allergy/AdvReac Type Severity Reaction Status Date / Time No Known Allergies Allergy Verified 12/17/17 17:13 Home Medications: Home Meds Cyanocobalamin (Vitamin B-12) [Vitamin B-12] 1,000 mcg PO DAILY 01/06/14 [ History] Folic Acid 1 mg PO DAILY 01/06/14 [History] Losartan [Cozaar] 25 mg PO DAILY 01/06/14 [History] Multivitamin [Multi-Vitamin Daily] 1 tab PO DAILY 01/06/14 [History] atorvaSTATin [Lipitor] 20 mg PO BEDTIME 01/06/14 [History] Potassium Chloride 10 meq PO BID #60 08/13/14 [Rx] Bumetanide [Bumex] 1 mg PO DAILY 03/17/17 [History] Budesonide/Formoterol [Symbicort 160-4.5 MCG] 2 puff INH BID 03/18/17 [History] Calcium Carbonate/Vitamin D3 [[facility]vs Calcium 500 + Vit D Tablet] 2 tab PO DAILY 09/29 [History] Cholecalciferol (Vitamin D3) [Vitamin D3] 1,000 unit PO DAILY 03/18/17 [History] Nitroglycerin [Nitrostat] 1 tab SL Q5M PRN 03/18/17 [History] Umeclidinium [place] [Incruse Ellipta*] 1 puff INH DAILY 03/18/17 [History] Albuterol Sulfate [Proair Respiclick] 2 puff INH Q4HR PRN 12/15/17 [History] Aspirin [Ecotrin] 325 mg PO DAILY 12/17/17 [History] Bumetanide 0.5 mg PO DAILY@1400 12/17/17 [History] Ipratropium [place] 2 sprays NS TID 12/17/17 [History] Metoprolol Succinate 200 mg PO DAILY 12/17/17 [History] buPROPion [buPROPion XL] 75 mg PO BID 12/17/17 [History] Past Medical History HEENT History: Reports: Hard of Hearing Cardiovascular History: Reports: Afib, Blood Clots/VTE/DVT, Heart Failure, High Cholesterol, Hypertension, Pulmonary Hypertension Other Cardiovascular History: mild aortic and mitral regurgitation Respiratory History: Reports: Sleep Apnea Other Respiratory History: Uses CPAP Gastrointestinal History: Reports: GERD Other Gastrointestinal History: Esophageal stricture Musculoskeletal History: Reports: Osteoarthritis Psychiatric History: Reports: Anxiety, Depression, OCD Endocrine/Metabolic History: Reports: Obesity/BMI 30+ - Past Surgical History HEENT Surgical History: Reports: None Social & Family History - Family History Family Medical History: Noncontributory - Caffeine Use Caffeine Use: Reports: Coffee, Soda H&P Review of Systems - Review of Systems: Review Of Systems: See Below Exam - Exam Exam: See Below - Vital Signs Vital Signs: Last Vital Signs Temp 36.4 C 12/18/17 05:53 Pulse 62 12/18/17 05:53 Resp 18 12/18/17 05:53 BP 118/52 L 12/18/17 05:53 Pulse Ox 93 L 12/18/17 05:53 Problem List Initiated/Reviewed/Updated: Yes Orders Last 24hrs: Active Orders 24 hr Category Date Time Status Admission Status [Patient Status] [ADT] Routine ADT 12/17/17 16:33 Active Patient Status [ADT] Routine ADT 12/17/17 17:17 Active Communication Order [RC] 08,20 Care 12/18/17 05:32 Active Oxygen Therapy [RC] .PRN Care 12/17/17 17:17 Active VTE/DVT Education [RC] .PRN Care 12/17/17 17:17 Active Vital Signs [RC] ,18 Care 12/17/17 17:17 Active OT Evaluation and Treatment [CONS] Routine Cons 12/18/17 07:55 Active PT Evaluation and Treatment [CONS] Routine Cons 12/18/17 07:55 Active Acetaminophen/HYDROcodone [[place] 325-5 MG] Med 12/18/17 03:33 Active 1 tab PO Q4H PRN Albuterol Sulfate [Proair Respiclick] Med 12/17/17 17:19 Pending 2 puff INH Q4HR PRN Albuterol [Proventil Neb Soln] Med 12/17/17 18:29 Active 2.5 mg INH Q4H PRN Aspirin [Ecotrin] Med 12/18/17 08:00 Active 325 mg PO DAILY Budesonide/Formoterol [Symbicort 160-4.5 MCG] Med 12/17/17 20:00 Active 0 puff INH BID Bumetanide [Bumex] Med 12/18/17 14:00 Active 0.5 mg PO DAILY@1400 Bumetanide [Bumex] Med 12/18/17 08:00 Active 1 mg PO DAILY Calcium Carbonate/Vitamin D3 [Calcium Carbonate/Vitamin Med 12/18/17 08:00 Active D 1250 MG-200 Unit] 2 tab PO DAILY Cholecalciferol (Vitamin D3) [Vitamin D3] Med 12/18/17 08:00 Active 1,000 units PO DAILY Cyanocobalamin (Vitamin B12) [Vitamin B12] Med 12/18/17 08:00 Active 1,000 mcg PO DAILY Folic Acid Med 12/18/17 08:00 Active 1 mg PO DAILY Ipratropium [place] [Ipratropium [place]] Med 12/17/17 20:00 Active 0 sprays NS TID Losartan [Cozaar] Med 12/18/17 08:00 Active 25 mg PO DAILY Metoprolol Succinate [Toprol XL] Med 12/18/17 08:00 Active 200 mg PO DAILY Multivitamins with Zinc [Stress Formula with Zinc] Med 12/18/17 08:00 Active 1 tab PO DAILY Nitroglycerin [Nitrostat] Med 12/17/17 17:19 Active 0.4 mg SL Q5M PRN Potassium Chloride [Klor-Con 10] Med 12/17/17 18:30 Active 10 meq PO BIDMEALS Umeclidinium [place] [Incruse Ellipta*] Med 12/18/17 08:00 Active 0 puff INH DAILY atorvaSTATin [Lipitor] Med 12/17/17 20:00 Active 20 mg PO BEDTIME buPROPion [Wellbutrin XL] Med 12/17/17 20:00 Pending 75 mg PO BID Resuscitation Status Routine Resus Stat 12/17/17 17:17 Ordered Medication Orders Hydrocodone Bitart/Acetaminophen ([place] 325-5 Mg) 1 tab PO Q4H PRN PRN Reason: Pain Last Admin: 12/18/17 03:49 Dose: 1 tab Albuterol (Proventil Neb Soln) 2.5 mg INH Q4H PRN PRN Reason: shortness of breath Aspirin (Ecotrin) 325 mg PO DAILY [facility] Atorvastatin Calcium (Lipitor) 20 mg PO BEDTIME [facility] Last Admin: 12/18/17 07:29 Dose: Bumetanide (Bumex) 0.5 mg PO DAILY@1400 [facility] Bumetanide (Bumex) 1 mg PO DAILY [facility] Bupropion HCl (Wellbutrin Xl) 75 mg PO BID [facility] Calcium Carbonate (Calcium Carbonate/Vitamin D 1250 Mg-200 Unit) 2 tab PO DAILY [facility] Cholecalciferol (Vitamin D3) 1,000 units PO DAILY [facility] Cyanocobalamin (Vitamin B12) 1,000 mcg PO DAILY [facility] Folic Acid (Folic Acid) 1 mg PO DAILY [facility] Losartan Potassium (Cozaar) 25 mg PO DAILY [facility] Metoprolol Succinate (Toprol Xl) 200 mg PO DAILY [facility] Nitroglycerin (Nitrostat) 0.4 mg SL Q5M PRN PRN Reason: Chest Pain Non-Formulary Medication (Albuterol Sulfate [Proair Respiclick]) 2 puff INH Q4HR PRN PRN Reason: Shortness of Breath Symbicort 160-4.5 Mcg Inhaler Own Med 0 puff INH BID [facility] Last Admin: 12/18/17 07:29 Dose: Ipratropium Nasal [place] 0.03% Own Med 0 sprays NS TID [facility] Last Admin: 12/18/17 07:29 Dose: Incruse Ellipta 62.5 Mcg Inhaler Own Med 0 puff INH DAILY [facility] Potassium Chloride (Klor-Con 10) 10 meq PO BIDMEALS [facility] Last Admin: 12/17/17 18:40 Dose: 10 meq Vitamin B Complex/Vit C/Vit E/Zinc (Stress Formula With Zinc) 1 tab PO DAILY [facility]
[2017-12-18] MEDS: Aspirin 325 MG Tab.EC PO SCH (09:27)
[2017-12-18] MEDS: Calcium Carbonate/Vitamin D3 1250 MG-200 Unit Tab PO SCH (09:27)
[2017-12-18] MEDS: Multivitamin, Stress Formula with Zinc Tab PO SCH (09:27)
[2017-12-18] MEDS: Cholecalciferol (Vitamin D3) 1,000 Unit Tab PO SCH (09:27)
[2017-12-18] MEDS: Cyanocobalamin (Vitamin B12) 1,000 MCG Tab PO SCH (09:28)
[2017-12-18] MEDS: LOSARTAN PO SCH (09:29)
[2017-12-18] MEDS: BUMETANIDE 1 MG PO SCH (09:29)
[2017-12-18] MEDS: FOLIC ACID 800 MCG PO SCH (09:31)
[2017-12-18] MEDS: METOPROLOL 200 MG PO SCH (09:31)
[2017-12-18] MEDS: POTASSIUM CHLORIDE 10 MEQ PO SCH ×2 (09:31→17:17)
[2017-12-18] MEDS: BUPROPION 150 MG PO SCH (09:32)
[2017-12-18] MEDS: Potassium Chloride 10 MEQ Tab.ER PO SCH (09:33)
[2017-12-18] MEDS: INCRUSE ELLIPTA 62.5 MCG INH SCH (09:55)
[2017-12-18] MEDS: BUMETANIDE 0.5 MG PO SCH (13:21)
[2017-12-18] MEDS ORDERED: Enoxaparin 30 MG/0.3 ML Syringe SUBCUT SCH (15:00)
[2017-12-18] MEDS: ATORVASTATIN 20 MG PO SCH (21:08)
[2017-12-18] MEDS: Enoxaparin 30 MG/0.3 ML Syringe SUBCUT SCH (21:09)
[2017-12-19] MEDS: Acetaminophen/HYDROcodone 325-5 MG Tab PO PRN ×2 (00:12→20:18)
[2017-12-19] MEDS: Calcium Carbonate/Vitamin D3 1250 MG-200 Unit Tab PO SCH (08:38)
[2017-12-19] MEDS: Aspirin 325 MG Tab.EC PO SCH (08:38)
[2017-12-19] MEDS: Cyanocobalamin (Vitamin B12) 1,000 MCG Tab PO SCH (08:38)
[2017-12-19] MEDS: Multivitamin, Stress Formula with Zinc Tab PO SCH (08:38)
[2017-12-19] MEDS: Cholecalciferol (Vitamin D3) 1,000 Unit Tab PO SCH (08:38)
[2017-12-19] MEDS: INCRUSE ELLIPTA 62.5 MCG INH SCH (08:39)
[2017-12-19] MEDS: BUMETANIDE 1 MG PO SCH (08:40)
[2017-12-19] MEDS: FOLIC ACID 800 MCG PO SCH (08:40)
[2017-12-19] MEDS: BUPROPION 150 MG PO SCH (08:40)
[2017-12-19] MEDS: LOSARTAN PO SCH (08:41)
[2017-12-19] MEDS: IPRATROPIUM 0.03% NS SCH ×3 (08:41→21:47)
[2017-12-19] MEDS: POTASSIUM CHLORIDE 10 MEQ PO SCH ×2 (08:42→17:01)
[2017-12-19] MEDS: METOPROLOL 200 MG PO SCH (08:42)
[2017-12-19] MEDS: BUMETANIDE 0.5 MG PO SCH (13:18)
[2017-12-19] MEDS: ATORVASTATIN 20 MG PO SCH (20:17)
[2017-12-19] MEDS: Enoxaparin 30 MG/0.3 ML Syringe SUBCUT SCH (20:18)
[2017-12-19] MEDS: ALBUTEROL SULFATE INH PRN (20:23)
[2017-12-20] MEDS: ALBUTEROL SULFATE INH PRN (05:44)
[2017-12-20] MEDS: Calcium Carbonate/Vitamin D3 1250 MG-200 Unit Tab PO SCH (09:13)
[2017-12-20] MEDS: Cholecalciferol (Vitamin D3) 1,000 Unit Tab PO SCH (09:13)
[2017-12-20] MEDS: Aspirin 325 MG Tab.EC PO SCH (09:15)
[2017-12-20] MEDS: Cyanocobalamin (Vitamin B12) 1,000 MCG Tab PO SCH (09:15)
[2017-12-20] MEDS: Multivitamin, Stress Formula with Zinc Tab PO SCH (09:15)
[2017-12-20] MEDS: POTASSIUM CHLORIDE 10 MEQ PO SCH ×2 (09:16→18:06)
[2017-12-20] MEDS: BUMETANIDE 1 MG PO SCH (09:16)
[2017-12-20] MEDS: FOLIC ACID 800 MCG PO SCH (09:17)
[2017-12-20] MEDS: LOSARTAN PO SCH (09:18)
[2017-12-20] MEDS: BUPROPION 150 MG PO SCH (09:18)
[2017-12-20] MEDS: IPRATROPIUM 0.03% NS SCH ×3 (09:21→20:02)
[2017-12-20] MEDS: METOPROLOL 200 MG PO SCH (09:22)
[2017-12-20] MEDS: INCRUSE ELLIPTA 62.5 MCG INH SCH (09:22)
[2017-12-20] MEDS: BUMETANIDE 0.5 MG PO SCH (14:28)
[2017-12-20] MEDS: Acetaminophen/HYDROcodone 325-5 MG Tab PO PRN (18:23)
[2017-12-20] MEDS: ATORVASTATIN 20 MG PO SCH (19:52)
[2017-12-20] MEDS: Enoxaparin 30 MG/0.3 ML Syringe SUBCUT SCH (19:53)
[2017-12-21] MEDS: Cyanocobalamin (Vitamin B12) 1,000 MCG Tab PO SCH (07:15)
[2017-12-21] MEDS: Cholecalciferol (Vitamin D3) 1,000 Unit Tab PO SCH (07:15)
[2017-12-21] MEDS: Aspirin 325 MG Tab.EC PO SCH (07:15)
[2017-12-21] MEDS: Multivitamin, Stress Formula with Zinc Tab PO SCH (07:15)
[2017-12-21] MEDS: INCRUSE ELLIPTA 62.5 MCG INH SCH (07:15)
[2017-12-21] MEDS: Calcium Carbonate/Vitamin D3 1250 MG-200 Unit Tab PO SCH (07:15)
[2017-12-21] MEDS: BUPROPION 150 MG PO SCH (08:16)
[2017-12-21] MEDS: BUMETANIDE 1 MG PO SCH (08:17)
[2017-12-21] MEDS: FOLIC ACID 800 MCG PO SCH (08:17)
[2017-12-21] MEDS: IPRATROPIUM 0.03% NS SCH ×3 (08:18→20:25)
[2017-12-21] MEDS: METOPROLOL 200 MG PO SCH (08:18)
[2017-12-21] MEDS: POTASSIUM CHLORIDE 10 MEQ PO SCH ×2 (08:18→17:22)
[2017-12-21] MEDS: LOSARTAN PO SCH (08:18)
[2017-12-21] MEDS: BUMETANIDE 0.5 MG PO SCH (13:04)
[2017-12-21] MEDS: Acetaminophen/HYDROcodone 325-5 MG Tab PO PRN (20:18)
[2017-12-21] MEDS: Enoxaparin 30 MG/0.3 ML Syringe SUBCUT SCH (20:19)
[2017-12-21] MEDS: ATORVASTATIN 20 MG PO SCH (20:25)
[2017-12-22] MEDS: INCRUSE ELLIPTA 62.5 MCG INH SCH (07:35)
[2017-12-22] MEDS: METOPROLOL 200 MG PO SCH (07:35)
[2017-12-22] MEDS: FOLIC ACID 800 MCG PO SCH (07:36)
[2017-12-22] MEDS: POTASSIUM CHLORIDE 10 MEQ PO SCH ×2 (07:36→17:16)
[2017-12-22] MEDS: BUMETANIDE 1 MG PO SCH (07:37)
[2017-12-22] MEDS: LOSARTAN PO SCH (07:37)
[2017-12-22] MEDS: BUPROPION 150 MG PO SCH (07:37)
[2017-12-22] MEDS: Aspirin 325 MG Tab.EC PO SCH (07:38)
[2017-12-22] MEDS: Cholecalciferol (Vitamin D3) 1,000 Unit Tab PO SCH (07:38)
[2017-12-22] MEDS: Multivitamin, Stress Formula with Zinc Tab PO SCH (07:38)
[2017-12-22] MEDS: Calcium Carbonate/Vitamin D3 1250 MG-200 Unit Tab PO SCH (07:38)
[2017-12-22] MEDS: Cyanocobalamin (Vitamin B12) 1,000 MCG Tab PO SCH (07:38)
[2017-12-22] MEDS: IPRATROPIUM 0.03% NS SCH ×3 (07:39→20:29)
[2017-12-22] MEDS: BUMETANIDE 0.5 MG PO SCH (14:09)
[2017-12-22] MEDS: Enoxaparin 30 MG/0.3 ML Syringe SUBCUT SCH (20:28)
[2017-12-22] MEDS: ATORVASTATIN 20 MG PO SCH (20:28)
[2017-12-23] MEDS: METOPROLOL 200 MG PO SCH (07:38)
[2017-12-23] MEDS: INCRUSE ELLIPTA 62.5 MCG INH SCH (07:38)
[2017-12-23] MEDS: BUMETANIDE 1 MG PO SCH (07:39)
[2017-12-23] MEDS: BUPROPION 150 MG PO SCH (07:39)
[2017-12-23] MEDS: LOSARTAN PO SCH (07:39)
[2017-12-23] MEDS: POTASSIUM CHLORIDE 10 MEQ PO SCH ×2 (07:39→17:03)
[2017-12-23] MEDS: FOLIC ACID 800 MCG PO SCH (07:40)
[2017-12-23] MEDS: Aspirin 325 MG Tab.EC PO SCH (07:40)
[2017-12-23] MEDS: Cholecalciferol (Vitamin D3) 1,000 Unit Tab PO SCH (07:40)
[2017-12-23] MEDS: Calcium Carbonate/Vitamin D3 1250 MG-200 Unit Tab PO SCH (07:40)
[2017-12-23] MEDS: Cyanocobalamin (Vitamin B12) 1,000 MCG Tab PO SCH (07:40)
[2017-12-23] MEDS: Multivitamin, Stress Formula with Zinc Tab PO SCH (07:40)
[2017-12-23] MEDS: IPRATROPIUM 0.03% NS SCH ×3 (07:43→19:45)
[2017-12-23] MEDS: BUMETANIDE 0.5 MG PO SCH (12:59)
[2017-12-23] MEDS: ATORVASTATIN 20 MG PO SCH (19:41)
[2017-12-23] MEDS: Acetaminophen/HYDROcodone 325-5 MG Tab PO PRN (19:42)
[2017-12-23] MEDS: Enoxaparin 30 MG/0.3 ML Syringe SUBCUT SCH (19:43)
[2017-12-24] MEDS: POTASSIUM CHLORIDE 10 MEQ PO SCH ×2 (08:14→17:57)
[2017-12-24] MEDS: Multivitamin, Stress Formula with Zinc Tab PO SCH (08:14)
[2017-12-24] MEDS: Cholecalciferol (Vitamin D3) 1,000 Unit Tab PO SCH (08:14)
[2017-12-24] MEDS: Aspirin 325 MG Tab.EC PO SCH (08:14)
[2017-12-24] MEDS: Calcium Carbonate/Vitamin D3 1250 MG-200 Unit Tab PO SCH (08:14)
[2017-12-24] MEDS: Cyanocobalamin (Vitamin B12) 1,000 MCG Tab PO SCH (08:14)
[2017-12-24] MEDS: LOSARTAN PO SCH (08:15)
[2017-12-24] MEDS: BUPROPION 150 MG PO SCH (08:15)
[2017-12-24] MEDS: BUMETANIDE 1 MG PO SCH (08:16)
[2017-12-24] MEDS: FOLIC ACID 800 MCG PO SCH (08:16)
[2017-12-24] MEDS: METOPROLOL 200 MG PO SCH (08:17)
[2017-12-24] MEDS: INCRUSE ELLIPTA 62.5 MCG INH SCH (08:17)
[2017-12-24] MEDS: IPRATROPIUM 0.03% NS SCH ×3 (08:18→20:23)
[2017-12-24] MEDS ORDERED: ACETAMINOPHEN PO PRN (13:45)
[2017-12-24] MEDS ORDERED: HYDROCODONE PO PRN (13:45)
[2017-12-24] MEDS: BUMETANIDE 0.5 MG PO SCH (15:01)
[2017-12-24] MEDS ORDERED: Polyethylene Glycol 3350 Powder 238 GM Bot PO PRN (18:57)
[2017-12-24] MEDS: ATORVASTATIN 20 MG PO SCH (20:15)
[2017-12-24] MEDS: ENOXAPARIN 30 MG SQ SCH (20:18)
[2017-12-25] MEDS: Calcium Carbonate/Vitamin D3 1250 MG-200 Unit Tab PO SCH (08:31)
[2017-12-25] MEDS: Multivitamin, Stress Formula with Zinc Tab PO SCH (08:31)
[2017-12-25] MEDS: Cholecalciferol (Vitamin D3) 1,000 Unit Tab PO SCH (08:32)
[2017-12-25] MEDS: Cyanocobalamin (Vitamin B12) 1,000 MCG Tab PO SCH (08:32)
[2017-12-25] MEDS: FOLIC ACID 800 MCG PO SCH (08:33)
[2017-12-25] MEDS: BUMETANIDE 1 MG PO SCH (08:33)
[2017-12-25] MEDS: Aspirin 325 MG Tab.EC PO SCH (08:33)
[2017-12-25] MEDS: LOSARTAN PO SCH (08:34)
[2017-12-25] MEDS: BUPROPION 150 MG PO SCH (08:34)
[2017-12-25] MEDS: POTASSIUM CHLORIDE 10 MEQ PO SCH ×2 (08:37→17:43)
[2017-12-25] MEDS: METOPROLOL 200 MG PO SCH (08:38)
[2017-12-25] MEDS: INCRUSE ELLIPTA 62.5 MCG INH SCH (08:39)
[2017-12-25] MEDS: IPRATROPIUM 0.03% NS SCH ×3 (08:39→20:07)
[2017-12-25] MEDS: BUMETANIDE 0.5 MG PO SCH (13:31)
[2017-12-25] MEDS: ATORVASTATIN 20 MG PO SCH (20:06)
[2017-12-25] MEDS: ENOXAPARIN 30 MG SQ SCH (20:11)
[2017-12-26] MEDS: INCRUSE ELLIPTA 62.5 MCG INH SCH (08:03)
[2017-12-26] MEDS: BUMETANIDE 1 MG PO SCH (08:05)
[2017-12-26] MEDS: BUPROPION 150 MG PO SCH (08:05)
[2017-12-26] MEDS: Calcium Carbonate/Vitamin D3 1250 MG-200 Unit Tab PO SCH (08:06)
[2017-12-26] MEDS: Aspirin 325 MG Tab.EC PO SCH (08:07)
[2017-12-26] MEDS: FOLIC ACID 800 MCG PO SCH (08:07)
[2017-12-26] MEDS: LOSARTAN PO SCH (08:12)
[2017-12-26] MEDS: METOPROLOL 200 MG PO SCH (08:14)
[2017-12-26] MEDS: POTASSIUM CHLORIDE 10 MEQ PO SCH ×2 (08:15→17:44)
[2017-12-26] MEDS: Multivitamin, Stress Formula with Zinc Tab PO SCH (08:15)
[2017-12-26] MEDS: Cholecalciferol (Vitamin D3) 1,000 Unit Tab PO SCH (08:16)
[2017-12-26] MEDS: Cyanocobalamin (Vitamin B12) 1,000 MCG Tab PO SCH (08:16)
[2017-12-26] MEDS: IPRATROPIUM 0.03% NS SCH ×3 (08:21→20:42)
[2017-12-26] MEDS: BUMETANIDE 0.5 MG PO SCH (14:02)
[2017-12-26] MEDS: ATORVASTATIN 20 MG PO SCH (20:42)
[2017-12-26] MEDS: ENOXAPARIN 30 MG SQ SCH (20:43)
[2017-12-27] MEDS ORDERED: Bisacodyl 5 MG Tab PO PRN (07:57)
[2017-12-27] MEDS: INCRUSE ELLIPTA 62.5 MCG INH SCH (08:04)
[2017-12-27] MEDS: BUMETANIDE 1 MG PO SCH (08:06)
[2017-12-27] MEDS: BUPROPION 150 MG PO SCH (08:09)
[2017-12-27] MEDS: Calcium Carbonate/Vitamin D3 1250 MG-200 Unit Tab PO SCH (08:10)
[2017-12-27] MEDS: Aspirin 325 MG Tab.EC PO SCH (08:11)
[2017-12-27] MEDS: FOLIC ACID 800 MCG PO SCH (08:11)
[2017-12-27] MEDS: IPRATROPIUM 0.03% NS SCH ×3 (08:12→19:29)
[2017-12-27] MEDS: LOSARTAN PO SCH (08:12)
[2017-12-27] MEDS: METOPROLOL 200 MG PO SCH (08:13)
[2017-12-27] MEDS: POTASSIUM CHLORIDE 10 MEQ PO SCH ×2 (08:13→19:03)
[2017-12-27] MEDS: Multivitamin, Stress Formula with Zinc Tab PO SCH (08:14)
[2017-12-27] MEDS: Cholecalciferol (Vitamin D3) 1,000 Unit Tab PO SCH (08:15)
[2017-12-27] MEDS: Cyanocobalamin (Vitamin B12) 1,000 MCG Tab PO SCH (08:15)
[2017-12-27] MEDS: BUMETANIDE 0.5 MG PO SCH (14:09)
[2017-12-27] MEDS: ATORVASTATIN 20 MG PO SCH (19:29)
[2017-12-27] MEDS: ENOXAPARIN 30 MG SQ SCH (19:29)
[2017-12-28 06:11] VITALS: BP 126/61
[2017-12-28] MEDS: BUPROPION 150 MG PO SCH (08:12)
[2017-12-28] MEDS: LOSARTAN PO SCH (08:13)
[2017-12-28] MEDS: METOPROLOL 200 MG PO SCH (08:13)
[2017-12-28] MEDS: POTASSIUM CHLORIDE 10 MEQ PO SCH (08:15)
[2017-12-28] MEDS: FOLIC ACID 800 MCG PO SCH (08:16)
[2017-12-28] MEDS: INCRUSE ELLIPTA 62.5 MCG INH SCH (08:16)
[2017-12-28] MEDS: IPRATROPIUM 0.03% NS SCH ×2 (08:17→13:36)
[2017-12-28] MEDS: BUMETANIDE 1 MG PO SCH (08:18)
[2017-12-28] MEDS: Cyanocobalamin (Vitamin B12) 1,000 MCG Tab PO SCH (08:19)
[2017-12-28] MEDS: Aspirin 325 MG Tab.EC PO SCH (08:20)
[2017-12-28] MEDS: Calcium Carbonate/Vitamin D3 1250 MG-200 Unit Tab PO SCH (08:20)
[2017-12-28] MEDS: Cholecalciferol (Vitamin D3) 1,000 Unit Tab PO SCH (08:20)
[2017-12-28] MEDS: Multivitamin, Stress Formula with Zinc Tab PO SCH (08:20)
[2017-12-28] MEDS: BUMETANIDE 0.5 MG PO SCH (14:23)
--- NOTE | 2017-12-28 18:58 | PCM.DCSUM1 ---
Discharge Summary - Hospital Course Free Text/Narrative:: 87 yo fell on 12/14 and sprained her ankle she could not walk on it, no fracture was found. She was admitted observation and transitioned over to swing bed to work with PT. The swelling went down and she was ambulating with a walker. She was working with OT also for dressing. She did initially use Hydrocodone for pain but none in the last few days. She had some constipation but that has improved with Miralax. All of her chronic medical conditions are stable. She is followed by [facility] for every 2 week med fills. - Discharge Data Discharge Date: 12/28/17 Discharge Disposition: Home, W Home Health Agency 06 Condition: Good - Discharge Diagnosis/Problem(s) (1) Ankle sprain SNOMED Code(s): 21479061 ICD Code: S93.409A - SPRAIN OF UNSP LIGAMENT OF UNSPECIFIED ANKLE, INIT ENCNTR Status: Acute Priority: High Qualifiers: Encounter type: initial encounter Involved ligament of ankle: unspecified ligament Laterality: left Qualified Code(s): S93.402A - Sprain of unspecified ligament of left ankle, initial encounter (2) CHF (congestive heart failure) SNOMED Code(s): 89982364 ICD Code: I50.9 - HEART FAILURE, UNSPECIFIED Status: Chronic Priority: Medium (3) COPD (chronic obstructive pulmonary disease) SNOMED Code(s): 34300705 ICD Code: J44.9 - CHRONIC OBSTRUCTIVE PULMONARY DISEASE, UNSPECIFIED Status : Chronic Priority: Medium Qualifiers: COPD type: unspecified COPD Qualified Code(s): J44.9 - Chronic obstructive pulmonary disease, unspecified (4) Depressive disorder SNOMED Code(s): 33063072 ICD Code: F32.9 - MAJOR DEPRESSIVE DISORDER, SINGLE EPISODE, UNSPECIFIED Status: Chronic Priority: Medium (5) Afib, Atrial fibrillation SNOMED Code(s): 96545008 ICD Code: I48.91 - UNSPECIFIED ATRIAL FIBRILLATION Status: Chronic Priority: Medium Problem Details: EF 65% - Patient Summary/Data Consults: Consultations 12/18/17 07:55 OT Evaluation and Treatment [CONS] Routine PT Evaluation and Treatment [CONS] Routine - Patient Instructions Diet: Usual Diet as Tolerated Driving: Do Not Drive Notify Provider of: Fever, Increased Pain, Nausea and/or Vomiting - Discharge Plan Prescriptions/Med Rec: Polyethylene Glycol 3350 [MiraLAX] 17 gm PO DAILY PRN #30 cont PRN Reason: Constipation Home Medications: Home Meds Cyanocobalamin (Vitamin B-12) [Vitamin B-12] 1,000 mcg PO DAILY 01/06/14 [ History] Folic Acid 1 mg PO DAILY 01/06/14 [History] Losartan [Cozaar] 25 mg PO DAILY 01/06/14 [History] Multivitamin [Multi-Vitamin Daily] 1 tab PO DAILY 01/06/14 [History] atorvaSTATin [Lipitor] 20 mg PO BEDTIME 01/06/14 [History] Potassium Chloride 10 meq PO BID #60 08/13/14 [Rx] Bumetanide [Bumex] 1 mg PO DAILY 03/17/17 [History] Budesonide/Formoterol [Symbicort 160-4.5 MCG] 2 puff INH BID 03/18/17 [History] Calcium Carbonate/Vitamin D3 [Cvs Calcium 500 + Vit D Tablet] 2 tab PO DAILY 09/29 [History] Cholecalciferol (Vitamin D3) [Vitamin D3] 1,000 unit PO DAILY 03/18/17 [History] Nitroglycerin [Nitrostat] 1 tab SL Q5M PRN 03/18/17 [History] Umeclidinium [place] [Incruse Ellipta*] 1 puff INH DAILY 03/18/17 [History] Aspirin [Ecotrin] 325 mg PO DAILY 12/17/17 [History] Bumetanide 0.5 mg PO DAILY@1400 12/17/17 [History] Ipratropium [place] 2 sprays NS TID 12/17/17 [History] Metoprolol Succinate 200 mg PO DAILY 12/17/17 [History] buPROPion [buPROPion XL] 150 mg PO DAILY 12/17/17 [History] Albuterol [Ventolin HFA] 2 puff PO Q4H PRN 12/18/17 [History] Polyethylene Glycol 3350 [MiraLAX] 17 gm PO DAILY PRN #30 cont 12/28/17 [Rx] Referrals: Shirley Loera DO [Primary Care Provider] - 01/25/18 3:20 pm (You have a follow up appt. with Dr. Letty Loera on January 25, 2018 at 3:20) - Discharge Summary/Plan Comment DC Time >30 min.: No Discharge Summary/Plan Comment: Face to Face Encounter I certify that Mell Jacobs is under my care and that I, or a nurse practitioner or physicians kindergarten teacher assistant, had a [id number] encounter that meets the physician [id number] requirements on December 28, 2017 . This date must match the Discharge Summary Progress note/Clinic Visit documentation supporting this information. The encounter with the patient was in whole or in part for the following medical condition, which is the primary reason for home health care: Gait Training. Patient requires nursing care for medication monitoring along with physical therapy to help with gait and balance given her recent fall and ankle sprain. My clinical findings support the need for the services because Inability to safely get to outpatient facility for therapy due to fall risk, lack of muscle coordination and tone. Further, I certify that my clinical findings support that this patient is homebound (i.e absences from home require considerable and taxing effort, or are for medical reasons, or for caodaism services, or infrequent, or of short duration when for other reasons) because Patient experiences pain and/or decreased mobility due to recent event. Certification For Home Health Service I certify that Mell Jacobs meets the homebound requirements for the payer source and has a need for intermittent long term, physical therapy and/or speech or occupational therapy services in the home for the diagnosis currently outlined in the initial plan of care. These services will continue to be monitored by Dr. Shirley Loera. This physician will periodically review and update the plan of care as required. My signature indicates that this supplemental documentation has been incorporated in the patient's medical record. - General Info Date of Service: 12/28/17 Functional Status: Reports: Pain Controlled, Tolerating Diet, Ambulating - Review of Systems General: Reports: No Symptoms HEENT: Reports: No Symptoms Pulmonary: Reports: No Symptoms Cardiovascular: Reports: No Symptoms Gastrointestinal: Reports: No Symptoms Musculoskeletal: Reports: Foot Pain, Joint Pain (left ankle) Neurological: Denies: Confusion Psychiatric: Reports: No Symptoms - Patient Data Vitals - Most Recent: Last Vital Signs Temp 97.9 F 12/28/17 06:00 Pulse 68 12/28/17 06:00 Resp 18 12/28/17 06:00 BP 126/61 12/28/17 06:00 Pulse Ox 96 12/28/17 07:52 Weight - Most Recent: 81.102 kg I&O - Last 24 hours: Intake & Output 12/28/17 12/28/17 12/28/17 06:59 14:59 22:59 Intake Total 480 Balance 480 Lab Results - Last 24 hrs: Laboratory Results - last 24 hr 12/28/17 Range/Units 06:43 WBC 6.9 (4.0-10.0) x10^3/uL RBC 4.42 (4.00-5.50) x10^6/uL Hgb 11.2 L (12.0-16.0) g/dL Hct 35.8 (33.0-47.0) % MCV 81.0 (78.0-93.0) fL MCH 25.3 L (26.0-32.0) pg MCHC 31.3 L (32.0-36.0) g/dL RDW Coeff of Jayy 15.0 (10.0-15.0) % Plt Count 299 (130-400) x10^3/uL Med Orders - Current: Current Medications Discontinued Medications Hydrocodone Bitart/Acetaminophen ([place] 325-5 Mg) 1 tab PO Q4H PRN PRN Reason: Pain Last Admin: 12/23/17 19:42 Dose: 1 tab Aspirin (Ecotrin) 325 mg PO DAILY [facility] Last Admin: 12/28/17 08:20 Dose: 325 mg Atorvastatin Calcium (Lipitor) 20 mg PO BEDTIME [facility] Last Admin: 12/18/17 07:29 Dose: Not Given Bisacodyl (Dulcolax) 5 mg PO DAILY PRN PRN Reason: Constipation Calcium Carbonate (Calcium Carbonate/Vitamin D 1250 Mg-200 Unit) 2 tab PO DAILY [facility] Last Admin: 12/28/17 08:20 Dose: 2 tab Cholecalciferol (Vitamin D3) 1,000 units PO DAILY [facility] Last Admin: 12/28/17 08:20 Dose: 1,000 units Cyanocobalamin (Vitamin B12) 1,000 mcg PO DAILY [facility] Last Admin: 12/28/17 08:19 Dose: 1,000 mcg Enoxaparin Sodium (Lovenox) 30 mg SUBCUT Q24H [facility] Last Admin: 12/18/17 16:00 Dose: Not Given Enoxaparin Sodium (Lovenox) 30 mg SUBCUT Q24H [facility] Last Admin: 12/23/17 19:43 Dose: 30 mg Nitroglycerin (Nitrostat) 0.4 mg SL Q5M PRN PRN Reason: Chest Pain Albuterol Sulfate [ Ventolin Hfa] (Own Supply) 0 puff INH Q4HR PRN PRN Reason: Shortness of Breath Last Admin: 12/20/17 05:44 Dose: 2 puff Symbicort 160-4.5 Mcg Inhaler Own Med 0 puff INH BID [facility] Last Admin: 12/28/17 08:21 Dose: 2 puff Ipratropium Nasal [place] 0.03% Own Med 0 sprays NS TID [facility] Last Admin: 12/28/17 13:36 Dose: Not Given Incruse Ellipta 62.5 Mcg Inhaler Own Med 0 puff INH DAILY [facility] Last Admin: 12/28/17 08:16 Dose: 1 puff Atorvastatin. 20mg ( (Own Supply)) 0 mg PO BEDTIME [facility] Last Admin: 12/27/17 19:29 Dose: 20 mg Bumetanide. 1mg (Own (Supply)) 1 mg PO DAILY [facility] Last Admin: 12/28/17 08:18 Dose: 1 mg Bumetanide. 0.5mg ( (Own Supply)) 0 mg PO DAILY@1400 [facility] Last Admin: 12/28/17 14:23 Dose: 0.5 mg Folic Acid. 800mcg ( (Own Supply)) 0 mcg PO DAILY [facility] Last Admin: 12/28/17 08:16 Dose: 800 mcg Losartan. 25mg (1/2 (X 50mg) Own Supply) 0 mg PO DAILY [facility] Last Admin: 12/28/17 08:13 Dose: 25 mg Metoprolol Er 200mg ((Own Supply)) 0 mg PO DAILY [facility] Last Admin: 12/28/17 08:13 Dose: 200 mg Potassium Chloride. (10 Meq (Own Supply)) 0 meq PO BIDMEALS [facility] Last Admin: 12/28/17 08:15 Dose: 10 meq Bupropion Xl 150mg ( (Own Supply)) 0 mg PO DAILY [facility] Last Admin: 12/28/17 08:12 Dose: 150 mg Enoxaparin. 30mg ( (Own Supply)) 30 mg SQ BEDTIME [facility] Last Admin: 06/14/18 19:29 Dose: 30 mg Hydrocodone/Acetaminophen 5/325mg (Own Supply) 1 each PO Q4H PRN PRN Reason: Pain Polyethylene Glycol (Miralax) 17 gm PO DAILY PRN PRN Reason: Constipation Last Admin: 12/24/17 21:32 Dose: 17 gm Potassium Chloride (Klor-Con 10) 10 meq PO BIDMEALS [facility] Last Admin: 12/18/17 09:33 Dose: Not Given Senna/Docusate Sodium (Senna Plus) 1 tab PO BID [facility] Last Admin: 12/28/17 08:21 Dose: Not Given Vitamin B Complex/Vit C/Vit E/Zinc (Stress Formula With Zinc) 1 tab PO DAILY [facility] Last Admin: 12/28/17 08:20 Dose: 1 tab - Exam General: Reports: Alert, Oriented HEENT: Reports: Pupils Equal Lungs: Reports: Clear to Auscultation, Normal Respiratory Effort Cardiovascular: Reports: Regular Rate, Regular Rhythm Extremities: Normal Inspection, Normal Range of Motion, Other (mild swelling in the left ankle, ROM is good, no redness or tenderness to palpation ). No: Leg Pain Skin: Reports: Warm, Dry
== END 2017-12-28 16:05 | disposition home health service (06) | DRG 948 ==
LOC: VM.MS 16:33
PROVIDERS: ADMIT Family Medicine; ATTEND Internal Medicine
DX: R53.1 Weakness (principal); S93.602D Unspecified sprain of left foot, subsequent encounter; W19.XXXD Unspecified fall, subsequent encounter; K59.00 Constipation, unspecified; E66.9 Obesity, unspecified; Z68.35 Body mass index [BMI] 35.0-35.9, adult; I11.0 Hypertensive heart disease with heart failure; I50.9 Heart failure, unspecified; J44.9 Chronic obstructive pulmonary disease, unspecified; F32.9 Major depressive disorder, single episode, unspecified; I48.91 Unspecified atrial fibrillation; G47.30 Sleep apnea, unspecified; K21.9 Gastro-esophageal reflux disease without esophagitis; I27.20 Pulmonary hypertension, unspecified; Z79.899 Other long term (current) drug therapy; Z79.82 Long term (current) use of aspirin
CPT/HCPCS: 36415; 85027; 94760; 97110-GP; 97116-GP; 97165-GO; 97530-GP; 97535-GO; A9270-GY; J1650

== ENCOUNTER 2018-09-08 21:21 | Emergency (ER) | payer MEDICARE, MEDICAID ==
[2018-09-08] MEDS ORDERED: Sodium Chloride 0.9% 10 ML Syringe FLUSH PRN (21:39)
--- NOTE | 2018-09-08 21:40 | EDM.PDOC ---
ED HPI GENERAL MEDICAL PROBLEM - General Chief Complaint: Respiratory Problem Stated Complaint: RETAINING FLUID;HARD TO CATCH HER BREATH Time Seen by Provider: 09/08/18 21:26 Source of Information: Reports: Patient, Family, RN, RN Notes Reviewed History Limitations: Reports: No Limitations - History of Present Illness INITIAL COMMENTS - FREE TEXT/NARRATIVE: Patient presents to the ED at [facility] complaining of SOB and lower extremity fluid retention that started about 2 days ago. Patient is well aware of her CHF diet, but admits to eating very salty foods over the past couple of days. She states she feels somewhat anxious feeling SOB. No focal neurological deficits. No chest pain. No abdominal or pelvis pain. Patient denies any dizziness or lightheadedness. Patient's last PCP visit was 07/29/2018. No medication changes were made at the time. Patient takes 1 mg Bumex in the AM and 1/2 mg in the PM. She states she takes her medications as directed. Onset Date: 09/06/18 - Related Data Allergies Allergy/AdvReac Type Severity Reaction Status Date / Time No Known Allergies Allergy Verified 09/08/18 21:49 Home Meds: Home Meds Cyanocobalamin (Vitamin B-12) [Vitamin B-12] 1,000 mcg PO DAILY 01/06/14 [ History] Folic Acid 1 mg PO DAILY 01/06/14 [History] Losartan [Cozaar] 25 mg PO DAILY 01/06/14 [History] Multivitamin [Multi-Vitamin Daily] 1 tab PO DAILY 01/06/14 [History] atorvaSTATin [Lipitor] 20 mg PO BEDTIME 01/06/14 [History] Potassium Chloride 10 meq PO BID #60 08/13/14 [Rx] Bumetanide [Bumex] 1 mg PO DAILY 03/17/17 [History] Budesonide/Formoterol [Symbicort 160-4.5 MCG] 2 puff INH BID 03/18/17 [History] Calcium Carbonate/Vitamin D3 [Cvs Calcium 500 + Vit D Tablet] 2 tab PO DAILY 09/29 [History] Cholecalciferol (Vitamin D3) [Vitamin D3] 1,000 unit PO DAILY 03/18/17 [History] Nitroglycerin [Nitrostat] 1 tab SL Q5M PRN 03/18/17 [History] Umeclidinium [place] [Incruse Ellipta*] 1 puff INH DAILY 03/18/17 [History] Aspirin [Ecotrin] 325 mg PO DAILY 12/17/17 [History] Bumetanide 0.5 mg PO DAILY@1400 12/17/17 [History] Ipratropium [place] 2 sprays NS TID 12/17/17 [History] Metoprolol Succinate 200 mg PO DAILY 12/17/17 [History] buPROPion [buPROPion XL] 150 mg PO DAILY 12/17/17 [History] Albuterol [Ventolin HFA] 2 puff PO Q4H PRN 12/18/17 [History] Polyethylene Glycol 3350 [MiraLAX] 17 gm PO DAILY PRN #30 cont 12/28/17 [Rx] Past Medical History HEENT History: Reports: Hard of Hearing Cardiovascular History: Reports: Afib, Blood Clots/VTE/DVT, Heart Failure, High Cholesterol, Hypertension, Pulmonary Hypertension Other Cardiovascular History: mild aortic and mitral regurgitation Respiratory History: Reports: Sleep Apnea Other Respiratory History: Uses CPAP Gastrointestinal History: Reports: GERD Other Gastrointestinal History: Esophageal stricture Musculoskeletal History: Reports: Osteoarthritis Psychiatric History: Reports: Anxiety, Depression, OCD Endocrine/Metabolic History: Reports: Obesity/BMI 30+ - Past Surgical History HEENT Surgical History: Reports: None Social & Family History - Family History Family Medical History: Noncontributory - Caffeine Use Caffeine Use: Reports: Coffee, Soda ED ROS GENERAL - Review of Systems Review Of Systems: See Below Constitutional: Denies: Fever, Chills Respiratory: Reports: Shortness of Breath. Denies: Cough, Sputum Cardiovascular: Reports: Edema. Denies: Chest Pain, Lightheadedness, Palpitations GI/Abdominal: Denies: Abdominal Pain, Nausea, Vomiting Skin: Reports: No Symptoms Neurological: Reports: No Symptoms ED EXAM, GENERAL - Physical Exam Exam: See Below Exam Limited By: No Limitations General Appearance: Alert, No Apparent Distress Respiratory/Chest: No Respiratory Distress, Crackles (Right base; rest of lungs clear) Cardiovascular: Normal Peripheral Pulses, Irregularly Irregular, Other (+2 dependent pitting edema BLE) Peripheral Pulses: 2+: Radial (L), Radial (R) GI/Abdominal: Normal Bowel Sounds, Soft, Non-Tender Neurological: Alert, Oriented Skin Exam: Warm, Dry, Intact, Normal Color Course - Vital Signs Last Recorded V/S: Last Vital Signs Temp 36.3 C 09/08/18 21:50 Pulse 56 L 09/08/18 22:07 Resp 28 H 09/08/18 22:07 BP 161/64 H 09/08/18 22:30 Pulse Ox 95 09/08/18 22:30 - Orders/Labs/Meds Orders: Active Orders 24 hr Category Date Time Status COMPREHENSIVE METABOLIC PN,CMP [CHEM] Stat Lab 09/08/18 21:52 Results CREATINE KINASE,CK [CHEM] Stat Lab 09/08/18 21:52 Results PRO B-TYPE NATRIUR PEPT,BNPPRO [CHEM] Stat Lab 09/08/18 21:52 Results TROPONIN I [CHEM] Stat Lab 09/08/18 21:52 Results Sodium Chloride 0.9% [Saline Flush] Med 09/08/18 21:39 Active 10 ml FLUSH ASDIRECTED PRN Peripheral IV Insertion Adult [OM.PC] Routine Oth 09/08/18 21:39 Ordered Medication Orders Sodium Chloride (Saline Flush) 10 ml FLUSH ASDIRECTED PRN PRN Reason: Keep Vein Open Labs: Laboratory Tests 09/08/18 09/08/18 09/08/18 Range/Units 21:52 21:52 21:52 WBC 7.8 (4.0-10.0) x10^3/uL RBC 4.49 (4.00-5.50) x10^6/uL Hgb 11.8 L (12.0-16.0) g/dL Hct 37.5 (33.0-47.0) % MCV 83.5 (78.0-93.0) fL MCH 26.3 (26.0-32.0) pg MCHC 31.5 L (32.0-36.0) g/dL RDW Coeff of Jayy 15.5 H (10.0-15.0) % Plt Count 214 D (130-400) x10^3/uL Neut % (Auto) 72.7 (50.0-80.0) % Lymph % (Auto) 14.7 L (25.0-50.0) % Carbon % (Auto) 10.7 (2.0-11.0) % Eos % (Auto) 1.3 (0.0-4.0) % Baso % (Auto) 0.6 (0.2-1.2) % PT 12.2 H (9.6-11.4) SEC INR 1.2 L (2.0-3.5) Sodium 142 (136-145) mmol/L Potassium 3.9 (3.5-5.1) mmol/L Chloride 104 (98-107) mmol/L Carbon Dioxide 28 (21-32) mmol/L Anion Gap 13.9 (10-20) mmol/L Creatinine 1.1 H (0.55-1.02) mg/dL Est Cr Clr Drug Dosing TNP Estimated GFR (MDRD) 47 Glucose 103 (74-106) mg/dL Calcium 9.2 (8.5-10.1) mg/dL Corrected Calcium 9.52 (8.5-10.1) mg/dL Phosphorus (2.6-4.7) mg/dL Magnesium (1.8-2.4) mg/dL Total Bilirubin 0.7 (0.2-1.0) mg/dL AST 54 H (15-37) U/L ALT 57 (14-59) U/L Alkaline Phosphatase 143 H (46-116) U/L Creatine Kinase 105 (26-192) U/L Troponin I < 0.017 (<=0.056) ng/mL NT-Pro-B Natriuret Pep 4271 H (<=450) pg/mL Total Protein 7.3 (6.4-8.2) g/dL Albumin 3.6 (3.4-5.0) g/dL Globulin 3.7 Albumin/Globulin Ratio 0.97 09/08/18 Range/Units 21:52 WBC (4.0-10.0) x10^3/uL RBC (4.00-5.50) x10^6/uL Hgb (12.0-16.0) g/dL Hct (33.0-47.0) % MCV (78.0-93.0) fL MCH (26.0-32.0) pg MCHC (32.0-36.0) g/dL RDW Coeff of Jayy (10.0-15.0) % Plt Count (130-400) x10^3/uL Neut % (Auto) (50.0-80.0) % Lymph % (Auto) (25.0-50.0) % Carbon % (Auto) (2.0-11.0) % Eos % (Auto) (0.0-4.0) % Baso % (Auto) (0.2-1.2) % PT (9.6-11.4) SEC INR (2.0-3.5) Sodium (136-145) mmol/L Potassium (3.5-5.1) mmol/L Chloride (98-107) mmol/L Carbon Dioxide (21-32) mmol/L Anion Gap (10-20) mmol/L Creatinine (0.55-1.02) mg/dL Est Cr Clr Drug Dosing Estimated GFR (MDRD) Glucose (74-106) mg/dL Calcium (8.5-10.1) mg/dL Corrected Calcium (8.5-10.1) mg/dL Phosphorus 4.1 (2.6-4.7) mg/dL Magnesium 2.2 (1.8-2.4) mg/dL Total Bilirubin (0.2-1.0) mg/dL AST (15-37) U/L ALT (14-59) U/L Alkaline Phosphatase (46-116) U/L Creatine Kinase (26-192) U/L Troponin I (<=0.056) ng/mL NT-Pro-B Natriuret Pep (<=450) pg/mL Total Protein (6.4-8.2) g/dL Albumin (3.4-5.0) g/dL Globulin Albumin/Globulin Ratio Meds: Medications Generic Name Dose Route Start Last Admin Trade Name Freq PRN Reason Stop Dose Admin Sodium Chloride 10 ml 09/08/18 21:39 Saline Flush FLUSH ASDIRECTED PRN Keep Vein Open Discontinued Medications Generic Name Dose Route Start Last Admin Trade Name Freq PRN Reason Stop Dose Admin Furosemide 20 mg 09/08/18 22:22 09/08/18 22:32 Lasix IV 09/08/18 22:23 20 mg ONETIME ONE Administration Furosemide 20 mg 09/08/18 22:42 Lasix IV 09/08/18 22:43 ONETIME ONE Departure - Departure Time of Disposition: 22:45 Disposition: Home, Self-Care 01 Condition: Good Clinical Impression: Fluid overload Qualifiers: Hypervolemia type: unspecified Qualified Code(s): E87.70 - Fluid overload, unspecified - Discharge Information *PRESCRIPTION DRUG MONITORING PROGRAM REVIEWED*: Not Applicable *COPY OF PRESCRIPTION DRUG MONITORING REPORT IN PATIENT [place]: Not Applicable Instructions: Edema Referrals: Shirley Loera DO [Primary Care Provider] - Forms: ED Department Discharge Additional Instructions: 1. Increase Bumex to 1 mg twice a day 2. Continue to weigh yourself daily 3. Make appointment to see Dr. Loera in clinic for this Sunday for a recheck 4. Call us if you have any questions or concerns ED Communication - ED Communication Date/Time Date: 09/08/18 Time Called: 22:36 - Discussed Case With (1) Discussed Case With (1): Outpatient Provider Person/s Notified (1): Shirley Loera - Conversation Summary Outpatient Provider Agreed to Follow-up on this Patient: Yes Patient Aware of Amendments fo Care Plan: Yes - Problem List Review Problem List Initiated/Reviewed/Updated: Yes - My Orders Last 24 Hours: My Active Orders 09/08/18 21:39 Sodium Chloride 0.9% [Saline Flush] 10 ml FLUSH ASDIRECTED PRN Peripheral IV Insertion Adult [OM.PC] Routine 09/08/18 21:52 COMPREHENSIVE METABOLIC PN,CMP [CHEM] Stat CREATINE KINASE,CK [CHEM] Stat PRO B-TYPE NATRIUR PEPT,BNPPRO [CHEM] Stat TROPONIN I [CHEM] Stat - Assessment/Plan Last 24 Hours: My Active Orders 09/08/18 21:39 Sodium Chloride 0.9% [Saline Flush] 10 ml FLUSH ASDIRECTED PRN Peripheral IV Insertion Adult [OM.PC] Routine 09/08/18 21:52 COMPREHENSIVE METABOLIC PN,CMP [CHEM] Stat CREATINE KINASE,CK [CHEM] Stat PRO B-TYPE NATRIUR PEPT,BNPPRO [CHEM] Stat TROPONIN I [CHEM] Stat Assessment:: Fluid volume overload Plan: Case discussed with Dr. Letty Loera. Will give a total of 40 mg Lasix and increase her Bumex to 1 mg BID. Patient to follow up in clinic this Sunday for a recheck.
[2018-09-08] MEDS ORDERED: Furosemide 20 MG/2 ML VIAL IV ONE ×2 (22:22→22:42)
[2018-09-08 22:35] LABS: ANION GAP 13.9 mmol/L (10-20); CHLORIDE,CL 104 mmol/L (98-107); SODIUM,NA 142 mmol/L (136-145)
[2018-09-08 22:42] VITALS: BP 161/64
== END 2018-09-08 23:09 | disposition home or self-care (01) ==
LOC: SUPCPDRO 21:21 → VM.ED 21:21
DX: E87.70 Fluid overload, unspecified (principal); I11.0 Hypertensive heart disease with heart failure; I50.9 Heart failure, unspecified; Z79.82 Long term (current) use of aspirin; Z79.899 Other long term (current) drug therapy; F41.9 Anxiety disorder, unspecified; F32.9 Major depressive disorder, single episode, unspecified
CPT/HCPCS: 36415; 80053; 82550; 83735; 83880; 84100; 84484; 85025; 85610; 93005; 96374; 99285; J1940; 99284-GF

== ENCOUNTER 2018-11-06 12:23 | Emergency (ER) | payer MEDICARE, MEDICAID ==
[2018-11-06 12:45] VITALS: BP 110/65
[2018-11-06] MEDS ORDERED: Sodium Chloride 0.9% 10 ML Syringe FLUSH PRN (12:46)
--- NOTE | 2018-11-06 12:46 | EDM.PDOC ---
ED HPI GENERAL MEDICAL PROBLEM - General Chief Complaint: General Stated Complaint: Weakness Time Seen by Provider: 11/06/18 12:25 Source of Information: Reports: Patient, EMS, EMS Notes Reviewed, Old Records, RN, RN Notes Reviewed History Limitations: Reports: No Limitations - History of Present Illness INITIAL COMMENTS - FREE TEXT/NARRATIVE: Patient is brought to the emergency room at [facility] via EMS for generalized weakness that started about 1-1/2 weeks ago. The patient states that she has generally felt weak and it seems to be getting worse, therefore she called EMS. Upon arrival the patient seems to be a little bit confused. The patient is significantly hard of hearing despite using hearing aids. The patient denies any shortness of breath or chest pain. The patient denies any generalized pain. The patient states she just feels weak. The patient has not been recently weighed. The patient denies any abdominal pain. She has not had any recent nausea vomiting or diarrhea. The patient was recently seen at [facility] in [place] on October 29 for a chief complaint of shortness of breath, cough, fatigue. The patient did not have any real workup during that visit. The patient was asked to return in 3 days, and she was seen again on November 01, 2018. The patient's BNP at that time was 6687, previous BNP was 4 years ago with the result of 416. The patient's creatinine 8 days ago was 1.23 with a normal BUN. Most recent creatinine recheck was yesterday, creatinine was elevated at 2.03 with a BUN of 38. The patient has chronic atrial fibrillation. Her last EKG in her [place] chart was August 11, 2014 which showed an atrial fibrillation in the 70s. The patient's last echocardiogram according to old records was September 01, 2014. Her EF at that time was 65% which did show increase in pulmonary pressures of 30. The patient did have a chest x-ray within the last week it did show atelectasis versus infiltrate, therefore I believe she was started on a Z-Hebert yesterday. The patient was started on metolazone in addition to her Bumex last Sunday. The metolazone was stopped yesterday but she was continued on her Bumex. The patient 's weight yesterday was 77.3 kg, heart rate 58, blood pressure 104/60. Onset: Gradual - Related Data Allergies Allergy/AdvReac Type Severity Reaction Status Date / Time No Known Allergies Allergy Verified 11/06/18 12:42 Home Meds: Home Meds Cyanocobalamin (Vitamin B-12) [Vitamin B-12] 1,000 mcg PO DAILY 01/06/14 [ History] Folic Acid 1 mg PO DAILY 01/06/14 [History] Losartan [Cozaar] 25 mg PO DAILY 01/06/14 [History] Multivitamin [Multi-Vitamin Daily] 1 tab PO DAILY 01/06/14 [History] atorvaSTATin [Lipitor] 20 mg PO BEDTIME 01/06/14 [History] Potassium Chloride 10 meq PO BID #60 08/13/14 [Rx] Bumetanide [Bumex] 1 mg PO BID 03/17/17 [History] Budesonide/Formoterol [Symbicort 160-4.5 MCG] 2 puff INH BID 03/18/17 [History] Calcium Carbonate/Vitamin D3 [Cvs Calcium 500 + Vit D Tablet] 2 tab PO DAILY 09/29 [History] Cholecalciferol (Vitamin D3) [Vitamin D3] 1,000 unit PO DAILY 03/18/17 [History] Nitroglycerin [Nitrostat] 1 tab SL Q5M PRN 03/18/17 [History] Umeclidinium [place] [Incruse Ellipta*] 1 puff INH DAILY 03/18/17 [History] Aspirin [Ecotrin] 325 mg PO DAILY 12/17/17 [History] Ipratropium [place] 2 sprays NS TID 12/17/17 [History] Metoprolol Succinate 200 mg PO DAILY 12/17/17 [History] buPROPion [buPROPion XL] 150 mg PO DAILY 12/17/17 [History] Albuterol [Ventolin HFA] 2 puff PO Q4H PRN 12/18/17 [History] Azithromycin [Zithromax] 250 mg PO DAILY 11/06/18 [History] Past Medical History HEENT History: Reports: Hard of Hearing Other HEENT History: Patient wears a hearing aide in each ear. Cardiovascular History: Reports: Afib, Blood Clots/VTE/DVT, Heart Failure, High Cholesterol, Hypertension, Pulmonary Hypertension Other Cardiovascular History: mild aortic and mitral regurgitation Respiratory History: Reports: Sleep Apnea Other Respiratory History: Uses CPAP Gastrointestinal History: Reports: GERD Other Gastrointestinal History: Esophageal stricture Musculoskeletal History: Reports: Osteoarthritis Other Musculoskeletal History: Knee Osteoarthritis. Impaired Gait and Mobility (uses FWW) Psychiatric History: Reports: Anxiety, Depression, OCD Endocrine/Metabolic History: Reports: Obesity/BMI 30+ Hematologic History: Reports: Iron Deficiency, Other (See Below) Other Hematologic History: Microcytosis - Past Surgical History HEENT Surgical History: Reports: None Social & Family History - Family History Family Medical History: Noncontributory - Caffeine Use Caffeine Use: Reports: Coffee, Soda ED ROS GENERAL - Review of Systems Review Of Systems: See Below Constitutional: Reports: Weakness, Fatigue. Denies: Fever, Chills Respiratory: Denies: Shortness of Breath, Cough Cardiovascular: Denies: Chest Pain, Palpitations GI/Abdominal: Denies: Abdominal Pain, Nausea, Vomiting Skin: Reports: No Symptoms Neurological: Reports: No Symptoms ED EXAM, GENERAL - Physical Exam Exam: See Below Exam Limited By: No Limitations General Appearance: Alert, No Apparent Distress Respiratory/Chest: No Respiratory Distress, Decreased Breath Sounds, Rales ( mild bilateral bases). No: Wheezing Cardiovascular: Normal Peripheral Pulses, No Edema, Bradycardia Peripheral Pulses: 1+: Radial (L), Radial (R) GI/Abdominal: Normal Bowel Sounds, Soft, Non-Tender Neurological: Alert, Confused (seems to be chronic) Skin Exam: Warm, Dry, Intact, Normal Color EKG INTERPRETATION EKG Date: 11/06/18 Time: 12:40 Rhythm: A-Fib Rate (Beats/Min): 49 [place]: Normal P-Wave: Absent QRS: Normal ST-T: Normal QT: Normal MO/PQ Interval: Absent Comparison: Change From Previous EKG EKG Interpretation Comments: 1. Atrial Fibrillation with slow ventricular response 2. Nonspecific T-wave abnormality Course - Vital Signs Last Recorded V/S: Last Vital Signs Temp 36.4 C 11/06/18 12:42 Pulse 55 L 11/06/18 12:42 Resp 16 11/06/18 12:42 BP 110/65 11/06/18 12:42 Pulse Ox 97 11/06/18 12:42 - Orders/Labs/Meds Orders: Active Orders 24 hr Category Date Time Status EKG 12 Lead [EKG Documentation Completion] [RC] STAT Care 11/06/18 12:46 Active Sodium Chloride 0.9% [Saline Flush] Med 11/06/18 12:46 Active 10 ml FLUSH ASDIRECTED PRN Peripheral IV Insertion Adult [OM.PC] Routine Oth 11/06/18 12:46 Ordered Medication Orders Sodium Chloride (Saline Flush) 10 ml FLUSH ASDIRECTED PRN PRN Reason: Keep Vein Open Labs: Laboratory Tests 11/06/18 11/06/18 Range/Units 13:00 13:00 WBC 9.2 (4.0-10.0) x10^3/uL RBC 5.37 (4.00-5.50) x10^6/uL Hgb 13.5 D (12.0-16.0) g/dL Hct 41.9 (33.0-47.0) % MCV 78.0 D (78.0-93.0) fL MCH 25.1 L (26.0-32.0) pg MCHC 32.2 (32.0-36.0) g/dL RDW Coeff of Jayy 14.9 (10.0-15.0) % Plt Count 361 D (130-400) x10^3/uL Add Manual Diff Yes Neutrophils % (Manual) 80 (50-80) % Lymphocytes % (Manual) 9 L (25-50) % Monocytes % (Manual) 10 (2-11) % Metamyelocytes % 1 H (0) % Platelet Estimate Adequate Sodium 140 (136-145) mmol/L Potassium 3.1 L (3.5-5.1) mmol/L Chloride 97 L (98-107) mmol/L Carbon Dioxide 29 (21-32) mmol/L Anion Gap 17.1 (10-20) mmol/L BUN 40 H D (7-18) mg/dL Creatinine 1.7 H (0.55-1.02) mg/dL Est Cr Clr Drug Dosing 16.43 mL/min Estimated GFR (MDRD) 28 Glucose 104 (74-106) mg/dL Calcium 10.0 (8.5-10.1) mg/dL Corrected Calcium 10.24 H (8.5-10.1) mg/dL Phosphorus 3.9 (2.6-4.7) mg/dL Magnesium 2.0 (1.8-2.4) mg/dL Total Bilirubin 0.7 (0.2-1.0) mg/dL AST 25 (15-37) U/L ALT 24 (14-59) U/L Alkaline Phosphatase 151 H (46-116) U/L NT-Pro-B Natriuret Pep 3133 H (<=450) pg/mL Total Protein 8.2 (6.4-8.2) g/dL Albumin 3.7 (3.4-5.0) g/dL Globulin 4.5 Albumin/Globulin Ratio 0.82 Meds: Medications Generic Name Dose Route Start Last Admin Trade Name Freq PRN Reason Stop Dose Admin Sodium Chloride 10 ml 11/06/18 12:46 Saline Flush FLUSH ASDIRECTED PRN Keep Vein Open Discontinued Medications Generic Name Dose Route Start Last Admin Trade Name Freq PRN Reason Stop Dose Admin Potassium Chloride 40 meq 11/06/18 14:10 Klor-Con M20 PO 11/06/18 14:11 ONETIME ONE Departure - Departure Time of Disposition: 14:20 Disposition: Home, Self-Care 01 Condition: Good Clinical Impression: Bradycardia, Weakness - Discharge Information *PRESCRIPTION DRUG MONITORING PROGRAM REVIEWED*: Not Applicable *COPY OF PRESCRIPTION DRUG MONITORING REPORT IN PATIENT LANETTE: Not Applicable Instructions: Weakness, [id number] Referrals: Shirley Loera, DO [Primary Care Provider] - Forms: ED Department Discharge Additional Instructions: 1. Stay well hydrated and rest 2. No salt in any foods 3. Dr. Loera will decrease the Metoprolol to 100 mg daily. She will let home health know 4. Keep appointment with Dr. Loera for next week ED Communication - ED Communication Date/Time Date: 11/06/18 Time Called: 14:13 - Discussed Case With (1) Discussed Case With (1): Outpatient Provider Person/s Notified (1): Shirley Loera - Conversation Summary Outpatient Provider Agreed to Follow-up on this Patient: Yes - Problem List Review Problem List Initiated/Reviewed/Updated: Yes - My Orders Last 24 Hours: My Active Orders 11/06/18 12:46 EKG 12 Lead [EKG Documentation Completion] [RC] STAT Sodium Chloride 0.9% [Saline Flush] 10 ml FLUSH ASDIRECTED PRN Peripheral IV Insertion Adult [OM.PC] Routine - Assessment/Plan Last 24 Hours: My Active Orders 11/06/18 12:46 EKG 12 Lead [EKG Documentation Completion] [RC] STAT Sodium Chloride 0.9% [Saline Flush] 10 ml FLUSH ASDIRECTED PRN Peripheral IV Insertion Adult [OM.PC] Routine Assessment:: CHF, stable Weakness 2/2 to above Afib with bradycardia Plan: Case discussed with Dr. Loera. Will decrease metoprolol to 100 mg daily. Patient will start this new dose tomorrow. Dr. Loera will reorder and let home health know. Otherwise, no changes. 40 meq KCL given in ER. Followup with PCP next week as scheduled.
[2018-11-06 13:54] LABS: ANION GAP 17.1 mmol/L (10-20)
--- NOTE | 2018-11-06 14:14 | CR ---
[id number] RAD/RAD Chest PA or AP 1V EXAM: RAD Chest PA or AP 1V INDICATION: WEAKNESS, CHF. COMPARISON: March 17, 2017. DISCUSSION: Cardiomediastinal silhouette is stable in size and contour. Moderate left and trace right pleural effusions. Pulmonary hyperinflation. IMPRESSION: Moderate left and trace right pleural effusions. Adriel Romo DO 11/06/18 1413 Thank you for allowing us to participate in the care of your patient.
[2018-11-06] MEDS: Potassium Chloride 20 MEQ Tab.ER PO ONE (14:43)
== END 2018-11-06 14:50 | disposition home or self-care (01) ==
LOC: VM.ED 12:23
DX: I48.91 Unspecified atrial fibrillation (principal); R00.1 Bradycardia, unspecified; I50.9 Heart failure, unspecified; E66.9 Obesity, unspecified; Z79.899 Other long term (current) drug therapy; Z79.82 Long term (current) use of aspirin; Z68.35 Body mass index [BMI] 35.0-35.9, adult
CPT/HCPCS: 36415; 71045; 80053; 83735; 83880; 84100; 85025; 93005; 99285-25; A9270-GY

== ENCOUNTER 2018-11-07 11:26 | Emergency (ER) | payer MEDICARE, MEDICAID ==
--- NOTE | 2018-11-07 11:51 | CT ---
[id number] CT/CT Head Stroke Protocol EXAM: NONCONTRAST HEAD CT INDICATION: STROKE-LIKE SYMPTOMS. COMPARISON: None. DISCUSSION: There is moderate generalized atrophy. Moderate multifocal white matter hypoattenuation is nonspecific, but generally ascribed to chronic small vessel ischemia. There is a chronic right parietotemporal infarct within the middle cervical artery territory. Chronic lacunar infarct centered in the right cerebellum. No mass effect or midline shift. No acute hemorrhage or extra-axial fluid collection. No acute territorial infarct is identified. Mild mucosal thickening and small volume frothy secretions in the maxillary sinuses compatible with acute sinusitis. IMPRESSION: 1. No acute intracranial findings. 2. Chronic right parietotemporal infarct and right cerebellar lacunar infarct. 3. Moderate chronic small vessel ischemic changes and generalized atrophy. Ahmet Cummings MD 11/07/18 0469 Thank you for allowing us to participate in the care of your patient.
[2018-11-07 12:02] LABS: CHLORIDE,CL 97 mmol/L (98-107); SODIUM,NA 139 mmol/L (136-145)
[2018-11-07 12:05] LABS: ANION GAP 14.4 mmol/L (10-20)
--- NOTE | 2018-11-07 12:56 | EDM.PDOC ---
ED HPI GENERAL MEDICAL PROBLEM - General Chief Complaint: Neuro Symptoms/Deficits Stated Complaint: possible stroke Time Seen by Provider: 11/07/18 11:57 Source of Information: Reports: Patient, EMS, Other History Limitations: Reports: No Limitations - History of Present Illness INITIAL COMMENTS - FREE TEXT/NARRATIVE: Patient brought to the ER by EMS with complaints of left sided facial droop, speech difficulty, and left sided weakness. Last known well noted at 10 am by friends who saw her at the [place] walking around. Food was delivered after that time and home health arrived at 1030 noting the above. When she arrived we did sent her to CT scan immediately. No hemorrhage identified. No acute ischemia noted, but some old infarcts were present. Patient denies headache, chest pain, SOB, no abdominal pain. Does not seem to understand she appears to have had a stroke. No comprehension that she is unable to move her left side. Patient able to answer questions, is alert and oriented. She is difficult to understand due to the left sided weakness. She did have trace amounts of food present in her mouth so she was suctioned on arrival with the hopes of preventing aspiration. She denies any headache, chest pain, SOB, no abdominal pain. She is not aware that she is unable to move her left arm or leg. She is normally largely independent. She was incontinent of stool. Baker catheter placed. EKG found to be in a flutter; a chronic condition for her. Onset: Today, Sudden Onset Date: 11/07/18 Onset Time: 10:00 Location: Reports: Upper Extremity, Left, Lower Extremity, Left - Related Data Allergies Allergy/AdvReac Type Severity Reaction Status Date / Time No Known Allergies Allergy Verified 11/06/18 12:42 Home Meds: Home Meds Cyanocobalamin (Vitamin B-12) [Vitamin B-12] 1,000 mcg PO DAILY 01/06/14 [ History] Folic Acid 1 mg PO DAILY 01/06/14 [History] Losartan [Cozaar] 25 mg PO DAILY 01/06/14 [History] Multivitamin [Multi-Vitamin Daily] 1 tab PO DAILY 01/06/14 [History] atorvaSTATin [Lipitor] 20 mg PO BEDTIME 01/06/14 [History] Potassium Chloride 10 meq PO BID #60 08/13/14 [Rx] Bumetanide [Bumex] 1 mg PO BID 03/17/17 [History] Budesonide/Formoterol [Symbicort 160-4.5 MCG] 2 puff INH BID 03/18/17 [History] Calcium Carbonate/Vitamin D3 [Cvs Calcium 500 + Vit D Tablet] 2 tab PO DAILY 09/29 [History] Cholecalciferol (Vitamin D3) [Vitamin D3] 1,000 unit PO DAILY 03/18/17 [History] Nitroglycerin [Nitrostat] 1 tab SL Q5M PRN 03/18/17 [History] Umeclidinium [place] [Incruse Ellipta*] 1 puff INH DAILY 03/18/17 [History] Aspirin [Ecotrin] 325 mg PO DAILY 12/17/17 [History] Ipratropium [place] 2 sprays NS TID 12/17/17 [History] Metoprolol Succinate 200 mg PO DAILY 12/17/17 [History] buPROPion [buPROPion XL] 150 mg PO DAILY 12/17/17 [History] Albuterol [Ventolin HFA] 2 puff PO Q4H PRN 12/18/17 [History] Azithromycin [Zithromax] 250 mg PO DAILY 11/06/18 [History] Past Medical History HEENT History: Reports: Hard of Hearing Other HEENT History: Patient wears a hearing aide in each ear. Cardiovascular History: Reports: Afib, Blood Clots/VTE/DVT, Heart Failure, High Cholesterol, Hypertension, Pulmonary Hypertension Other Cardiovascular History: mild aortic and mitral regurgitation Respiratory History: Reports: Sleep Apnea Other Respiratory History: Uses CPAP Gastrointestinal History: Reports: GERD Other Gastrointestinal History: Esophageal stricture Musculoskeletal History: Reports: Osteoarthritis Other Musculoskeletal History: Knee Osteoarthritis. Impaired Gait and Mobility (uses FWW) Psychiatric History: Reports: Anxiety, Depression, OCD Endocrine/Metabolic History: Reports: Obesity/BMI 30+ Hematologic History: Reports: Iron Deficiency, Other (See Below) Other Hematologic History: Microcytosis - Past Surgical History HEENT Surgical History: Reports: None Social & Family History - Family History Family Medical History: Noncontributory - Caffeine Use Caffeine Use: Reports: Coffee, Soda ED ROS GENERAL - Review of Systems Review Of Systems: See Below Constitutional: Reports: No Symptoms HEENT: Reports: No Symptoms Respiratory: Reports: No Symptoms Cardiovascular: Reports: No Symptoms Endocrine: Reports: No Symptoms GI/Abdominal: Reports: No Symptoms : Reports: No Symptoms Musculoskeletal: Reports: No Symptoms, Other Skin: Reports: No Symptoms Neurological: Reports: Weakness Psychiatric: Reports: No Symptoms Hematologic/Lymphatic: Reports: No Symptoms Immunologic: Reports: No Symptoms ED EXAM, NEURO - Physical Exam Exam: See Below Exam Limited By: Other (patient is alert, speech is difficult to understand due to left sided facial palsy and stroke) General Appearance: Alert, WD/WN, No Apparent Distress Eye Exam: Bilateral Eye: EOMI, Normal Inspection, PERRL Ears: Normal TMs Nose: Normal Inspection, Normal Mucosa, No Blood Throat/Mouth: Other (left sided droop) Head Exam: Atraumatic, Normocephalic Neck: Normal Inspection, Supple, Non-Tender, Full Range of Motion Respiratory/Chest: No Respiratory Distress, Lungs Clear, Normal Breath Sounds, No Accessory Muscle Use, Chest Non-Tender Cardiovascular: No Murmur, Bradycardia, Irregularly Irregular GI/Abdominal: Normal Bowel Sounds, Soft, Non-Tender, No Organomegaly, No Distention, No Abnormal Bruit, No Mass Neurological: Alert, Normal Mood/Affect, Oriented x 3, Abnormal Pin Prick (no sensation to left side), Abn 2 Pt Discrimination (left side ) Back Exam: Normal Inspection, Full Range of Motion, NT Extremities: Other (no resistance to gravity to left side, upper and lower extremities) Psychiatric: Normal Affect, Normal Mood Skin Exam: Warm, Dry, Intact, Normal Color, No Rash Comments: Patient has garbled speech. She is alert and oriented. Unable to move left arm , left leg. Absent sensation to left side on pinprick, absent 2 point discrimination to left side. Left sided facial droop. Course - Orders/Labs/Meds Orders: Active Orders 24 hr Category Date Time Status CULTURE URINE [RM] Routine Lab 11/07/18 11:30 Received Labs: Laboratory Tests 11/07/18 11/07/18 11/07/18 Range/Units 11:30 11:39 11:39 WBC 9.1 (4.0-10.0) x10^3/uL RBC 5.64 H (4.00-5.50) x10^6/uL Hgb 14.0 (12.0-16.0) g/dL Hct 44.3 (33.0-47.0) % MCV 78.5 (78.0-93.0) fL MCH 24.8 L (26.0-32.0) pg MCHC 31.6 L (32.0-36.0) g/dL RDW Coeff of Jayy 15.0 (10.0-15.0) % Plt Count 393 (130-400) x10^3/uL Add Manual Diff Yes Neutrophils % (Manual) 77 (50-80) % Lymphocytes % (Manual) 15 L (25-50) % Monocytes % (Manual) 6 (2-11) % Basophils % (Manual) 1 (0-1) % Myelocytes % 1 H (0) % Platelet Estimate Adequate Poikilocytosis 1+ slight H Anisocytosis 1+ slight H PT (10.0-12.8) SEC INR (2.0-3.5) APTT (24.0-36.0) SEC Sodium 139 (136-145) mmol/L Potassium 3.4 L (3.5-5.1) mmol/L Chloride 97 L (98-107) mmol/L Carbon Dioxide 31 (21-32) mmol/L Anion Gap 14.4 (10-20) mmol/L BUN 45 H (7-18) mg/dL Creatinine 2.0 H (0.55-1.02) mg/dL Est Cr Clr Drug Dosing TNP Estimated GFR (MDRD) 24 Glucose 182 H (74-106) mg/dL Calcium 10.3 H (8.5-10.1) mg/dL Urine Color Yellow (YELLOW) Urine Appearance Clear (CLEAR) Urine pH 6.0 (5.0-8.0) Ur Specific [place] 1.010 Urine Protein Negative (NEGATIVE) mg/dL Urine Glucose (UA) Negative (NEGATIVE) mg/dL Urine Ketones Negative (NEGATIVE) mg/dL Urine Occult Blood Trace-intact H (NEGATIVE) Urine Nitrite Positive H (NEGATIVE) Urine Bilirubin Negative (NEGATIVE) Urine Urobilinogen 0.2 (0.2) EU/dL Ur Leukocyte Esterase Moderate H (NEGATIVE) Urine RBC 0-5 (NOT SEEN) /HPF Urine WBC 10-20 H (NOT SEEN) /HPF Ur Squamous Epith Cells Moderate H (NEGATIVE) /HPF Urine Bacteria Many H (NEGATIVE) /HPF Hyaline Casts Few H (NEGATIVE) /HPF Urine Mucus Rare H (NEGATIVE) /LPF 11/07/18 Range/Units 11:39 WBC (4.0-10.0) x10^3/uL RBC (4.00-5.50) x10^6/uL Hgb (12.0-16.0) g/dL Hct (33.0-47.0) % MCV (78.0-93.0) fL MCH (26.0-32.0) pg MCHC (32.0-36.0) g/dL RDW Coeff of Jayy (10.0-15.0) % Plt Count (130-400) x10^3/uL Add Manual Diff Neutrophils % (Manual) (50-80) % Lymphocytes % (Manual) (25-50) % Monocytes % (Manual) (2-11) % Basophils % (Manual) (0-1) % Myelocytes % (0) % Platelet Estimate Poikilocytosis Anisocytosis PT 12.2 (10.0-12.8) SEC INR 1.1 L (2.0-3.5) APTT 23.0 L (24.0-36.0) SEC Sodium (136-145) mmol/L Potassium (3.5-5.1) mmol/L Chloride (98-107) mmol/L Carbon Dioxide (21-32) mmol/L Anion Gap (10-20) mmol/L BUN (7-18) mg/dL Creatinine (0.55-1.02) mg/dL Est Cr Clr Drug Dosing Estimated GFR (MDRD) Glucose (74-106) mg/dL Calcium (8.5-10.1) mg/dL Urine Color (YELLOW) Urine Appearance (CLEAR) Urine pH (5.0-8.0) Ur Specific [place] Urine Protein (NEGATIVE) mg/dL Urine Glucose (UA) (NEGATIVE) mg/dL Urine Ketones (NEGATIVE) mg/dL Urine Occult Blood (NEGATIVE) Urine Nitrite (NEGATIVE) Urine Bilirubin (NEGATIVE) Urine Urobilinogen (0.2) EU/dL Ur Leukocyte Esterase (NEGATIVE) Urine RBC (NOT SEEN) /HPF Urine WBC (NOT SEEN) /HPF Ur Squamous Epith Cells (NEGATIVE) /HPF Urine Bacteria (NEGATIVE) /HPF Hyaline Casts (NEGATIVE) /HPF Urine Mucus (NEGATIVE) /LPF - Radiology Interpretation Free Text/Narrative:: CT negative for hemorrhage. No identified ischemia. Evidence of chronic ischemia. - Re-Assessments/Exams Free Text/Narrative Re-Assessment/Exam: 11/07/18 13:20 Patient initially did not want to have TpA given. She requested to wait until her son arrived to discuss with her. Risks and benefits reviewed with patient and her son. Dr. Shirley Leora also in room. Patient did consent to TpA administration. Bolus given, 7 mg, remaining 63.4 mg started en route Free Text/Narrative Re-Assessment/Exam: 11/07/18 13:41 When she arrived we did sent her to CT scan immediately. No hemorrhage identified. No acute ischemia noted, but some old infarcts were present. Does not seem to understand she appears to have had a stroke. No comprehension that she is unable to move her left side. Patient able to answer questions, is alert and oriented. She is difficult to understand due to the left sided weakness. She did have trace amounts of food present in her mouth so she was suctioned on arrival with the hopes of preventing aspiration. She is normally largely independent. She was incontinent of stool. Baker catheter placed. EKG found to be in a- flutter; a chronic condition for her. Not anticoagulation. Departure - Departure Time of Disposition: 13:19 Disposition: DC/Tfer to Acute Hospital 02 Condition: Fair Clinical Impression: Ischemic stroke - Discharge Information *PRESCRIPTION DRUG MONITORING PROGRAM REVIEWED*: Not Applicable *COPY OF PRESCRIPTION DRUG MONITORING REPORT IN PATIENT LANETTE: Not Applicable Referrals: Shirley Loera, [Primary Care Provider] - Forms: ED Department Discharge, Interfacility Transfer [facility] ED Communication - Discussed Case With (1) Discussed Case With (1): Admitting Provider (Dr. Vee at [facility] contacted and given report. Tpa was decided to be in her best interest. Will transfer to ER at [facility] in [place]. He is aware.) - Problem List & Annotations (1) Ischemic stroke SNOMED Code(s): 271118959 Code(s): I63.9 - CEREBRAL INFARCTION, UNSPECIFIED Status: Acute Priority : Medium Current Visit: Yes - Problem List Review Problem List Initiated/Reviewed/Updated: Yes - My Orders Last 24 Hours: My Active Orders 11/07/18 11:30 CULTURE URINE [RM] Routine - Assessment/Plan Last 24 Hours: My Active Orders 11/07/18 11:30 CULTURE URINE [RM] Routine Assessment:: ischemic stroke Plan: Patient transfer to [facility] for acute stroke care. TpA consented to and administered.
--- NOTE | 2018-11-07 17:16 | PCM.SN ---
- Free Text/Narrative Note: Patient presented to the ER by EMS did say help me when I came in the room. I know her well have been her PCP over 6 years. Initially she was hesitant to take the TPA I think she was thinking it was something like coumadin and didn't really understand and wanted to leave it in God's hands but then her son came and we explained things again and he also agreed that she should take the TPA so finally she did agree to take it after we discussed the risks and benefits of the medication and she is aware there is a risk of bleeding and that the medication may not work. She reached up to touch her son but could not use her left hand. Her speech is also affected by this stroke and her NIH was 15. Did discuss that this type of stroke would lead to disability for her and she admitted that she wants to get better.
== END 2018-11-07 13:19 | disposition short-term general hospital (02) ==
LOC: VM.ED 11:26
DX: I63.9 Cerebral infarction, unspecified (principal); I11.0 Hypertensive heart disease with heart failure; I50.9 Heart failure, unspecified; I48.91 Unspecified atrial fibrillation; E78.00 Pure hypercholesterolemia, unspecified; K21.9 Gastro-esophageal reflux disease without esophagitis; F41.9 Anxiety disorder, unspecified; F32.9 Major depressive disorder, single episode, unspecified; Z79.899 Other long term (current) drug therapy; Z79.82 Long term (current) use of aspirin
CPT/HCPCS: 36415; 70450; 80048; 81001; 84484; 85025; 85610; 85730; 87086; 87186; 93005; 96374; 96376; 99285-GF; 99291-25; 99292